=== PATIENT | female | born 1975 | race American Indian/Alaskan Native ===

== ENCOUNTER 2016-11-20 15:57 | Emergency (ER) | payer MEDICARE ==
[2016-11-20 16:10] VITALS: BP 148/100
[2016-11-20 16:41] LABS: Eosinophils % (Auto) 0.8 % (0.0-4.3); Hematocrit 45.4 % (30.3-42.9); Hemoglobin 15.2 gm/dl (10.1-14.3); Mean Corpuscular HGB Conc 34 % (30-34); Mean Corpuscular Hemoglobin 37 pg (28-32); Mean Corpuscular Volume 110 fl (79-97); Platelet Count 187 K/mm3 (140-440); Red Blood Count 4.13 M/mm3 (3.65-5.03); Red Cell Distribution Width 14.9 % (13.2-15.2); White Blood Count 9.2 K/mm3 (4.5-11.0)
[2016-11-20 16:51] LABS: Alanine Aminotransferase 14 units/L (7-56); Albumin 4.2 g/dL (3.9-5); Albumin/Globulin Ratio 1.2 %; Alkaline Phosphatase 76 units/L (35-129); Anion Gap 20 mmol/L; BUN/Creatinine Ratio 6.25; Bilirubin,Total 0.3 mg/dL (0.1-1.2); Blood Urea Nitrogen 5 mg/dL (7-17); Calcium 8.3 mg/dL (8.4-10.2); Carbon Dioxide 20 mmol/L (22-30); Chloride 103.2 mmol/L (98-107); Glucose 111 mg/dL (65-100); Lipase 21 units/L (13-60); Potassium 3.5 mmol/L (3.6-5.0); Sodium 140 mmol/L (137-145); Total Protein 7.7 g/dL (6.3-8.2)
[2016-11-20 18:17] LABS: Bacteria,Urine 2+ /HPF (Negative); Bilirubin,Urine NEG (Negative); Blood,Urine NEG (Negative); Ketones,Urine NEG (Negative); Leukocyte Esterase,Urine NEG (Negative); Mucus,Urine FEW /HPF; Nitrite,Urine NEG (Negative); Protein,Urine <15 mg/dL mg/dL (Negative); Urobilinogen,Urine < 2.0 mg/dL (<2.0)
== END 2016-11-20 21:45 | disposition left against medical advice (07) ==
LOC: ED 15:57
DX: R10.9 Unspecified abdominal pain (principal); Z53.21 Procedure and treatment not carried out due to patient leaving prior to being seen by health care provider
CPT/HCPCS: 36415; 80053; 81001; 83690; 85025

== ENCOUNTER 2016-11-26 19:17 | Emergency (ER) | payer MEDICARE ==
[2016-11-26 20:53] LABS: Basophils % (Auto) 0.9 % (0.0-1.8); Hematocrit 45.2 % (30.3-42.9); Hemoglobin 15.2 gm/dl (10.1-14.3); Mean Corpuscular HGB Conc 34 % (30-34); Mean Corpuscular Hemoglobin 37 pg (28-32); Mean Corpuscular Volume 111 fl (79-97); Platelet Count 161 K/mm3 (140-440); Red Blood Count 4.08 M/mm3 (3.65-5.03); Red Cell Distribution Width 15.3 % (13.2-15.2); White Blood Count 8.9 K/mm3 (4.5-11.0)
[2016-11-26 21:16] LABS: Alanine Aminotransferase 16 units/L (7-56); Albumin 4.1 g/dL (3.9-5); Albumin/Globulin Ratio 1.1 %; Alkaline Phosphatase 72 units/L (35-129); Anion Gap 22 mmol/L; BUN/Creatinine Ratio 8.75; Bilirubin,Total 0.3 mg/dL (0.1-1.2); Blood Urea Nitrogen 7 mg/dL (7-17); Calcium 8.9 mg/dL (8.4-10.2); Carbon Dioxide 18 mmol/L (22-30); Glucose 96 mg/dL (65-100); Lipase 17 units/L (13-60); Potassium 3.7 mmol/L (3.6-5.0); Sodium 141 mmol/L (137-145); Total Protein 7.9 g/dL (6.3-8.2)
[2016-11-27 00:24] LABS: Bilirubin,Urine Negative (Negative); Ketones,Urine Negative (Negative)
[2016-11-27 00:25] LABS: Blood,Urine Negative (Negative); Leukocyte Esterase,Urine Small (Negative); Nitrite,Urine Negative (Negative); PH,Urine 6.5 (5.0-7.0); Urobilinogen,Urine < 0.2 mg/dL (<2.0)
[2016-11-27 00:26] LABS: Bacteria,Urine 2+ /HPF (Negative); Mucus,Urine 1+ /HPF; RBC,Urine < 1.0 /HPF (0.0-6.0)
[2016-11-27 01:08] VITALS: BP 130/78
--- NOTE | 2016-11-27 01:52 | Emergency Department Report ---
ED Abdominal Pain HPI - General Chief Complaint: Abdominal Pain Stated Complaint: CONSTIPATION/EAR PAIN Time Seen by Provider: 11/27/16 01:08 Source: patient Mode of arrival: Ambulatory Limitations: No Limitations - History of Present Illness Initial Comments: 41-year-old female with a past medical history of bipolar, seizures, Down syndrome, and previous abdominal hernia repair presents to the hospital with complaints of abdominal pain and left ear pain. Patient has had left ear pain greater than one month. Patient also complains of constipation for the last 3 days but complaining of intermittent abdominal pain with eating for greater than 1 month. Patient has not tried taking a laxative. No reports of vomiting or fever. Patient is eating a bag of chips during my evaluation Severity scale (0 -10): 4 - Related Data Home Medications Medication Instructions Recorded Confirmed Last Taken Divalproex Sodium [Depakote] 500 mg PO BID 03/08/14 03/29/15 03/28/15 08:00 Lurasidone HCl [Latuda] 40 mg PO QDAY 03/29/15 03/29/15 03/29/15 200mg Previous Rx's Medication Instructions Recorded Last Taken Type Famotidine [Pepcid] 20 mg PO BID #60 tablet 11/27/16 Unknown Rx Polyethylene Glycol 3350 [Miralax 17 gm PO QDAY PRN #20 packet 11/27/16 Unknown Rx 3350] Allergies Allergy/AdvReac Type Severity Reaction Status Date / Time acetaminophen [From Vicodin] Allergy Anaphylaxis Verified 01/09/15 14:52 codeine Allergy Anaphylaxis Verified 01/09/15 14:52 hydrocodone bitartrate Allergy Anaphylaxis Verified 01/09/15 14:52 [From Vicodin] ED Review of Systems ROS: Stated complaint: CONSTIPATION/EAR PAIN Other details as noted in HPI Comment: All other systems reviewed and negative Other: Constitutional: No fevers chills Eyes: No eye pain visual changes ENT: As per HPI Neck: Denies pain Respiratory: Denies cough wheezing shortness of breath Cardiovascular: Denies chest pain, palpitations, syncope GI: As per HPI : Denies dysuria Musculoskeletal: Denies back pain, joint swelling Skin: Denies rash, lesions, erythema Neurologic: Denies headache, numbness, weakness Psychiatric: Denies suicidal ideation, hallucinations ED Past Medical Hx - Past Medical History Previous Medical History?: Yes Hx Hypertension: Yes (with ) Hx Congestive Heart Failure: No Hx Diabetes: No Hx Deep Vein Thrombosis: No Hx Renal Disease: No Hx Sickle Cell Disease: No Hx Seizures: Yes (last seizure 2011) Hx Psychiatric Treatment: Yes (BIPOLAR / DEPRESSION) Hx Asthma: No Hx COPD: No Hx HIV: No Additional medical history: Congenital heart murmur, Downs Syndrome - Surgical History Past Surgical History?: Yes Additional Surgical History: Hernia repair - Social History Smoking Status: Current Every Day Smoker Substance Use Type: Alcohol - Medications Home Medications: Home Medications Medication Instructions Recorded Confirmed Last Taken Type Divalproex Sodium [Depakote] 500 mg PO BID 03/08/14 03/29/15 03/28/15 08:00 History Lurasidone HCl [Latuda] 40 mg PO QDAY 03/29/15 03/29/15 03/29/15 History 200mg Famotidine [Pepcid] 20 mg PO BID #60 tablet 11/27/16 Unknown Rx Polyethylene Glycol 3350 [Miralax 17 gm PO QDAY PRN #20 packet 11/27/16 Unknown Rx 3350] ED Physical Exam - General Limitations: No Limitations - Other Other exam information: General: No limitations, patient is alert in no acute distress Head exam: Atraumatic, normocephalic Eyes exam: Normal appearance ENT: Left ear foreign body versus eustachian tube blue in color Neck exam: Normal inspection, full range of motion Respiratory exam: Clear to auscultation bilateral, no wheezes, rales, crackles Cardiovascular: Normal rate and rhythm, normal heart sounds Abdomen: Soft, nondistended, epigastric vertical scar with small area of firmness noted at the lower edge alone in the subcutaneous tissue. May represent focal soft tissue hernia. Nontender. Patient does have epigastric tenderness on palpation without rebound or guarding Extremity: Full range of motion normal inspection no deformity Back: Normal Inspection, full range of motion, no tenderness Neurologic: Alert, oriented x3, cranial nerves intact, no motor or sensory deficit Psychiatric: normal affect, normal mood Skin: Warm, dry, intact ED Course Vital Signs 11/26/16 11/26/16 11/27/16 20:27 23:29 01:06 Temperature 98.0 F 98.4 F Pulse Rate 113 H 97 H 75 Respiratory 18 18 16 Rate Blood Pressure 141/74 115/75 Blood Pressure 130/78 [Left] O2 Sat by Pulse 100 100 99 Oximetry ED Medical Decision Making - Lab Data Result diagrams: 11/26/16 20:44 11/26/16 20:44 Lab Results 11/26/16 11/26/16 11/26/16 Range/Units 20:44 20:44 23:30 WBC 8.9 (4.5-11.0) K/mm3 RBC 4.08 (3.65-5.03) M/mm3 Hgb 15.2 H (10.1-14.3) gm/dl Hct 45.2 H (30.3-42.9) % MCV 111 H (79-97) fl MCH 37 H (28-32) pg MCHC 34 (30-34) % RDW 15.3 H (13.2-15.2) % Plt Count 161 (140-440) K/mm3 Lymph % (Auto) 19.0 (13.4-35.0) % [place] % (Auto) 8.2 H (0.0-7.3) % Eos % (Auto) 2.0 (0.0-4.3) % Baso % (Auto) 0.9 (0.0-1.8) % Lymph # 1.7 (1.2-5.4) K/mm3 [place] # 0.7 (0.0-0.8) K/mm3 Eos # 0.2 (0.0-0.4) K/mm3 Baso # 0.1 (0.0-0.1) K/mm3 Seg Neutrophils % 69.9 (40.0-70.0) % Seg Neutrophils # 6.2 (1.8-7.7) K/mm3 Sodium 141 (137-145) mmol/L Potassium 3.7 (3.6-5.0) mmol/L Chloride 105.0 (98-107) mmol/L Carbon Dioxide 18 L (22-30) mmol/L Anion Gap 22 mmol/L BUN 7 (7-17) mg/dL Creatinine 0.8 (0.7-1.2) mg/dL Estimated GFR > 60 ml/min BUN/Creatinine Ratio 8.75 % Glucose 96 (65-100) mg/dL Calcium 8.9 (8.4-10.2) mg/dL Total Bilirubin 0.3 (0.1-1.2) mg/dL AST 17 (5-40) units/L ALT 16 (7-56) units/L Alkaline Phosphatase 72 (35-129) units/L Total Protein 7.9 (6.3-8.2) g/dL Albumin 4.1 (3.9-5) g/dL Albumin/Globulin Ratio 1.1 % Lipase 17 (13-60) units/L Urine Color Yellow (Yellow) Urine Turbidity Hazy (Clear) Urine pH 6.5 (5.0-7.0) Ur Specific [place] 1.025 (1.003-1.030) Urine Protein 30 mg/dl (Negative) mg/dL Urine Glucose (UA) Negative (Negative) mg/dL Urine Ketones Negative (Negative) mg/dL Urine Blood Negative (Negative) Urine Nitrite Negative (Negative) Urine Bilirubin Negative (Negative) Urine Urobilinogen < 0.2 (<2.0) mg/dL Ur Leukocyte Esterase Small (Negative) Urine WBC (Auto) 2.0 (0.0-6.0) /HPF Urine RBC (Auto) < 1.0 (0.0-6.0) /HPF U Epithel Cells (Auto) 3.0 (0-13.0) /HPF Urine Bacteria (Auto) 2+ (Negative) /HPF Urine Mucus 1+ /HPF - Radiology Data Radiology results: image reviewed (abd xray 2 view: naf) - Medical Decision Making Since family reports constipation will treat patient empirically for constipation. Also patient be placed on the PPI for epigastric pain related to eating. GI follow-up will be encouraged as well as ENT follow-up for evaluation of left ear foreign body. LActulose given prior to d/c - Differential Diagnosis obstipation, obstruction, gastritis, PUD Critical Care Time: No Critical care attestation.: If time is entered above; I have spent that time in minutes in the direct care of this critically ill patient, excluding procedure time. ED Disposition Clinical Impression: Epigastric pain, Constipation, Foreign body in left ear Disposition: DISCHARGED TO HOME OR SELFCARE Is pt being admited?: No Does the pt Need Aspirin: No Condition: Stable Instructions: Constipation (ED), Ear Foreign Body (ED), Abdominal Pain (ED) Additional Instructions: Follow up with the doctors provided. Take the medication as prescribed. Return if symptoms worsen. Prescriptions: Famotidine [Pepcid] 20 mg PO BID #60 tablet Polyethylene Glycol 3350 [Miralax 3350] 17 gm PO QDAY PRN #20 packet PRN Reason: Constipation Referrals: MAURIZIO CASILLAS MD [Staff Physician] - 3-5 Days (GI specialist) FAVIAN BERMUDEZ MD [Staff Physician] - 3-5 Days (Ear Nose Throat specialist ) Time of Disposition: 02:10
[2016-11-27] MEDS ORDERED: CEPHULAC PO ONE (01:53)
--- NOTE | 2016-11-27 10:14 | XRay Report ---
ABDOMINAL SERIES THREE VIEWS: 11/26/16 19:17:00 CLINICAL: Constipation. FINDINGS: Supine and upright views demonstrate a normal bowel gas pattern with a large volume of stool in the colon. No distended small bowel and no air-fluid levels. Gas and stool in the rectum. No pneumoperitoneum. No mass or suspicious calcifications. Surgical sutures in a circular shape and system with a mesh graft. Scoliosis and degenerative changes in the spine. IMPRESSION: Negative abdomen with abundant stool.
== END 2016-11-27 02:25 | disposition home or self-care (01) ==
LOC: ED 19:17
DX: K59.00 Constipation, unspecified (principal); T16.2XXA Foreign body in left ear, initial encounter; R10.13 Epigastric pain; R56.9 Unspecified convulsions; F32.9 Major depressive disorder, single episode, unspecified; F17.200 Nicotine dependence, unspecified, uncomplicated; X58.XXXA Exposure to other specified factors, initial encounter; Y93.89 Activity, other specified; Y92.89 Other specified places as the place of occurrence of the external cause; Y99.8 Other external cause status; Z88.6 Allergy status to analgesic agent; Z88.8 Allergy status to other drugs, medicaments and biological substances
CPT/HCPCS: 36415; 74020; 80053; 81001; 83690; 85025

== ENCOUNTER 2017-02-16 08:46 | Outpatient (CLI) | payer MEDICARE ==
[2017-02-16 09:30] LABS: Anion Gap 21 mmol/L; BUN/Creatinine Ratio 8.75; Blood Urea Nitrogen 7 mg/dL (7-17); Calcium 8.6 mg/dL (8.4-10.2); Carbon Dioxide 23 mmol/L (22-30); Chloride 104.5 mmol/L (98-107); Glucose 87 mg/dL (65-100); Potassium 4.5 mmol/L (3.6-5.0); Sodium 144 mmol/L (137-145)
[2017-02-16] MEDS ORDERED: NACL ONE (11:56)
--- NOTE | 2017-02-16 13:47 | Cat Scan Report ---
CT abdomen and pelvis with contrast: Recurrent abdominal hernia. Transverse images are obtained following injection of IV contrast from the lower chest to the ischium with coronal and sagittal 2-D reformatted images. The visualized lungs are clear. The abdominal and retroperitoneal organs are unremarkable. The partially opacified bowel and mesentery show no evidence of obstruction, mass, or inflammatory change. No adenopathy. Normal abdominal aortic contour and diameter. No fluid collections noted. There is a midline anterior abdominal wall mesh beginning at the lower margin of the left lobe of the liver. At the lower margin of the mesh the recurrent hernia begins on the left extending to a larger component below the level of the mesh. There is a maximum of 4.8 cm of midline rectus separation. The length of the total hernia is approximately 5.9 cm. extending 4.8 cm below the mesh. The hernia contains mesentery but no bowel. There is diffuse lumbar spondylosis and a levoscoliosis of the thoracolumbar spine. Bilateral degenerative acetabular spurs are noted with subchondral cystic changes. Impressions: 1. Midline hernia repair with recurrent hernia. 2. Scoliosis/spondylosis.
== END 2017-02-16 08:47 | disposition home or self-care (01) ==
LOC: CT 08:46
PROVIDERS: ATTEND Surgery
DX: K46.9 Unspecified abdominal hernia without obstruction or gangrene (principal); K59.00 Constipation, unspecified; M47.896 Other spondylosis, lumbar region; M41.85 Other forms of scoliosis, thoracolumbar region; F17.200 Nicotine dependence, unspecified, uncomplicated; Z98.890 Other specified postprocedural states
CPT/HCPCS: 36415; 74177; 80048; Q9967

== ENCOUNTER 2019-02-08 11:17 | Inpatient (IN) | payer MEDICARE ==
[2019-02-08] MEDS ORDERED: KEPPRA 1,000 MG/NS 0.75% 100ML 1,000 MG/100 ML BAG IV ONE (11:33)
[2019-02-08] MEDS ORDERED: ATIVAN IV ONE (11:35)
--- NOTE | 2019-02-08 11:37 | Emergency Department Report ---
ED Seizure HPI - General Chief Complaint: Seizure Stated Complaint: SEIZURE Time Seen by Provider: 02/08/19 11:28 Source: EMS Mode of arrival: Stretcher Limitations: Altered Mental Status - History of Present Illness Initial Comments: Ms. Lott is a 43 yo female with hx of schizophrenia, seizure disorder, who presents with seizure activity. Family members until EMS that she had a seizure which lasted one hour. She has been out of her Keppra medication for quite some time. Patient is currently nonverbal. Upon's fiance's arrival, he was able to provide additional information. Ms. Lott stood still, perfectly straight. Shouted out "the police are coming". She then fell to the ground, began trembling. Her movements were not her typical seizures. MD Complaint: seizure -: This morning Description of Episode: loss of consciousness, tonic-clonic movement Witnessed:: Yes Trauma: No Seizure History: known seizure disorder Place: home Possible Precipitating Event: medication (medication noncompliance) - Related Data Home Medications Medication Instructions Recorded Confirmed Last Taken Benztropine [Cogentin] 1 mg PO BID 03/07/17 06/17/18 06/17/18 Paliperidone [Invega] 3 mg PO DAILY 03/08/17 06/17/18 06/17/18 Previous Rx's Medication Instructions Recorded Last Taken Type levETIRAcetam [Keppra] 500 mg PO BID #90 tablet 06/17/18 Unknown Rx Ibuprofen [Motrin 800 MG tab] 800 mg PO Q8HR PRN #20 tablet 08/03/18 Unknown Rx Allergies Allergy/AdvReac Type Severity Reaction Status Date / Time acetaminophen [From Vicodin] Allergy Anaphylaxis Verified 03/03/17 16:45 codeine Allergy Anaphylaxis Verified 03/03/17 16:45 hydrocodone bitartrate Allergy Anaphylaxis Verified 03/03/17 16:45 [From Vicodin] ED Review of Systems ROS: Stated complaint: SEIZURE Other details as noted in HPI Comment: Unobtainable due to pts medical conditions (altered mental status, nonverbal) ED Past Medical Hx - Past Medical History Previous Medical History?: Yes Hx Hypertension: Yes (with ) Hx Congestive Heart Failure: No Hx Diabetes: No Hx Deep Vein Thrombosis: No Hx GERD: Yes Hx Renal Disease: No Hx Sickle Cell Disease: No Hx Seizures: Yes (last over 1 year ago) Hx Psychiatric Treatment: Yes (BIPOLAR / DEPRESSION) Hx Asthma: No Hx COPD: No Hx HIV: No Additional medical history: Congenital heart murmur, Downs Syndrome - Surgical History Additional Surgical History: Hernia repair x 2 - Social History Smoking Status: Unknown if ever smoked - Medications Home Medications: Home Medications Medication Instructions Recorded Confirmed Last Taken Type Benztropine [Cogentin] 1 mg PO BID 03/07/17 06/17/18 06/17/18 History Paliperidone [Invega] 3 mg PO DAILY 03/08/17 06/17/18 06/17/18 History levETIRAcetam [Keppra] 500 mg PO BID #90 tablet 06/17/18 Unknown Rx Ibuprofen [Motrin 800 MG tab] 800 mg PO Q8HR PRN #20 tablet 08/03/18 Unknown Rx ED Physical Exam - General Limitations: Altered Mental Status General appearance: other (keeps eyes closed, maintaining airway, no seizure activity,) - Head Head exam: Present: atraumatic, normocephalic - Eye Eye exam: Present: other (clenches eyes closed, will not allow eyelids to be pried open) - ENT ENT exam: Present: mucous membranes moist - Neck Neck exam: Present: normal inspection, full ROM. Absent: tenderness, meningismus - Respiratory Respiratory exam: Present: normal lung sounds bilaterally, chest wall tenderness. Absent: respiratory distress, wheezes, rales, rhonchi - Cardiovascular Cardiovascular Exam: Present: regular rate, normal rhythm, normal heart sounds. Absent: systolic murmur, diastolic murmur, rubs, gallop - GI/Abdominal GI/Abdominal exam: Present: soft, normal bowel sounds. Absent: distended, tenderness, guarding, rebound - Extremities Exam Extremities exam: Present: normal inspection - Back Exam Back exam: Present: normal inspection - Neurological Exam Neurological exam: Present: altered - Psychiatric Psychiatric exam: Present: flat affect - Skin Skin exam: Present: warm, dry, intact, normal color. Absent: rash ED Course Vital Signs 02/08/19 02/08/19 02/08/19 11:50 11:51 15:24 Temperature 98.5 F Pulse Rate 83 78 Respiratory 18 18 14 Rate Blood Pressure 131/81 116/66 [Right] O2 Sat by Pulse 97 97 98 Oximetry ED Medical Decision Making - Lab Data Result diagrams: 02/08/19 11:37 02/08/19 11:37 - Radiology Data Radiology results: report reviewed CT head, CT C-spine: No acute process no fracture and subluxation no evidence of acute findings according to radiology report - Medical Decision Making Ms. Lott has hx of seizure disorder. I obtained hx from paramedics at the bedside. I reviewed electronic medical record. I immediately ordered IV lorazepam and IV Keppra load. I spoke with nurse to coordinate care here in the emergency department. Ms. Lott presents with altered mental status and possible seizure activity. After 6 hours of observation continues to be nonverbal yet with purposeful movement. Differential diagnosis includes acute psychosis, status epilepticus, TIA. She will make eye contact. She exhibits purposeful movement. She appears to speak intermittently to her fianc. However fianc states that she has not had this type of presentation previously. Admitted to the hospitalist service in fair condition. TPA is not indicated considering multiple possible diagnoses. Critical care attestation.: If time is entered above; I have spent that time in minutes in the direct care of this critically ill patient, excluding procedure time. ED Disposition Clinical Impression: Acute encephalopathy, Seizure disorder, Psychosis Disposition: DC-09 OP ADMIT IP TO THIS HOSP Is pt being admited?: Yes Does the pt Need Aspirin: No Condition: Stable
[2019-02-08 11:49] LABS: Basophils # (Auto) 0.1 K/mm3 (0.0-0.1); Basophils % (Auto) 0.8 % (0.0-1.8); Eosinophils % (Auto) 0.2 % (0.0-4.3); Hematocrit 39.4 % (30.3-42.9); Hemoglobin 13.4 gm/dl (10.1-14.3); Lymphocytes # (Auto) 0.8 K/mm3 (1.2-5.4); Lymphocytes % (Auto) 9.8 % (13.4-35.0); Mean Corpuscular HGB Conc 34 % (30-34); Mean Corpuscular Volume 101 fl (79-97); Monocytes # (Auto) 0.6 K/mm3 (0.0-0.8); Monocytes % (Auto) 7.4 % (0.0-7.3); Platelet Count 157 K/mm3 (140-440); Red Blood Count 3.89 M/mm3 (3.65-5.03); Red Cell Distribution Width 14.6 % (13.2-15.2)
[2019-02-08 12:04] LABS: BUN/Creatinine Ratio 13; Blood Urea Nitrogen 10 mg/dL (7-17); Calcium 8.4 mg/dL (8.4-10.2); Hemolysis Index 8
[2019-02-08 14:00] LABS: Bacteria,Urine 1+ /HPF (Negative); Bilirubin,Urine NEG (Negative); Blood,Urine NEG (Negative); Color,Urine Yellow (Yellow); Mucus,Urine 3+ /HPF; Protein,Urine <15 mg/dL mg/dL (Negative); Urobilinogen,Urine < 2.0 mg/dL (<2.0)
[2019-02-08 14:30] LABS: Amphetamine Screen,Urine PRESUMPTIVE NEGATIVE; Benzodiazepines Screen,Urine PRESUMPTIVE NEGATIVE; Cocaine Screen,Urine PRESUMPTIVE NEGATIVE; Methadone Screen,Urine PRESUMPTIVE NEGATIVE; Opiate Screen,Urine PRESUMPTIVE NEGATIVE
[2019-02-08 14:43] LABS: Cannabinoid Screen,Urine PRESUMPTIVE POSITIVE
--- NOTE | 2019-02-08 18:00 | Cat Scan Report ---
PROCEDURE: CT HEAD/BRAIN WO CON TECHNIQUE: Computerized tomography of the head was performed without contrast material. CT DOSE LENGTH PRODUCT: 927.3 mGycm HISTORY: seizure AMS COMPARISONS: 08/03/2018 . FINDINGS: No CT evidence of intracranial mass, hemorrhage, acute territorial infarction, or hydrocephalus. Intr acranial arteries are symmetric in density. Bilaterally the globes appear ovoid in shape, similar to that seen previously. Calvarium is intact. Paranasal sinuses and mastoids are aerated. IMPRESSION: No CT evidence of acute intracranial abnormality . The globes are bilaterally ovoid in shape, but similar in appearance to the prior study This document is electronically signed by Oksana Hsu MD., February 08 2019 05:58:03 PM ET
--- NOTE | 2019-02-08 18:03 | Cat Scan Report ---
PROCEDURE: CT CERVICAL SPINE WO CON TECHNIQUE: Computerized tomography of the cervical spine was performed from the skull base to T1 wit hout contrast material. CT DOSE LENGTH PRODUCT: 506.1 mGycm HISTORY: seizure AMS COMPARISONS: None . FINDINGS: There are multilevel degenerative disc changes, particularly from C4-5 through C6-7. The vertebral kym dy heights and alignment are maintained. No acute fracture or subluxation is seen. IMPRESSION: No acute fracture or subluxation. This document is electronically signed by Oksana Hsu MD., February 08 2019 06:01:36 PM ET
--- NOTE | 2019-02-08 18:28 | History and Physical Report ---
History of Present Illness Chief complaint: She had a seizure History of present illness: 43 YO Female with Seizure Disorder, HTN, GERD, Bipolar, Depression, Schizophrenia, Downs Syndrome presents to ED for evaluation. Pt is lethargic and also nonverbal and unable to provide detailed history. Pt history provided by ursula biswas who is at bedside during exam and interview. As per family, the patient was found to have a generalized seizure today which lasted for approximately an hour. EMS notified, and upon arrival the patient was found to be in distress and was then transported to [facility]. Pt seen and evaluated in ED and found to have Encephalopathy. Pt admitted to medical floor and placed on remote telemetry. No reports of fever, chills, CP, Palpitations, Trauma, Falls, Skin Rash, productive cough, or recent ill contacts. No prior admission for review. All listed medication reconciled at time of admission. Past History Past Medical History: GERD, hypertension, seizures, other (Depression, Bipolar, Schizophrenia, ) Past Surgical History: hernia repair Social history: single Family history: hypertension Medications and Allergies Allergies Allergy/AdvReac Type Severity Reaction Status Date / Time acetaminophen [From Vicodin] Allergy Anaphylaxis Verified 03/03/17 16:45 codeine Allergy Anaphylaxis Verified 03/03/17 16:45 hydrocodone bitartrate Allergy Anaphylaxis Verified 03/03/17 16:45 [From Vicodin] Home Medications Medication Instructions Recorded Confirmed Last Taken Type Benztropine [Cogentin] 1 mg PO BID 03/07/17 06/17/18 06/17/18 History Paliperidone [Invega] 3 mg PO DAILY 03/08/17 06/17/18 06/17/18 History levETIRAcetam [Keppra] 500 mg PO BID #90 tablet 06/17/18 Unknown Rx Ibuprofen [Motrin 800 MG tab] 800 mg PO Q8HR PRN #20 tablet 08/03/18 Unknown Rx Review of Systems ROS unobtainable: due to mental status Exam - Constitutional Vitals: Temp Pulse Resp BP Pulse Ox 98.5 F 78 14 116/66 98 02/08/19 11:50 02/08/19 15:24 02/08/19 15:24 02/08/19 15:24 02/08/19 15:24 General appearance: Present: mild distress - EENT Eyes: Present: PERRL, miosis ENT: hearing intact, clear oral mucosa - Neck Neck: Present: supple, normal ROM - Respiratory Respiratory effort: normal Respiratory: bilateral: CTA - Cardiovascular Heart Sounds: Present: S1 & S2. Absent: rub, click - Extremities Extremities: pulses symmetrical, No edema Peripheral Pulses: within normal limits - Abdominal General gastrointestinal: Present: soft, non-tender, non-distended, normal bowel sounds Female genitourinary: Present: normal - Integumentary Integumentary: Present: clear, warm, dry - Musculoskeletal Musculoskeletal: generalized weakness - Psychiatric Psychiatric: no appropriate mood/affect, no intact judgment & insight, no memory intact - Neurologic Neurologic: CNII-XII intact, moves all extremities, no gait normal Results - Labs CBC & Chem 7: 02/08/19 11:37 02/08/19 11:37 Labs: Abnormal lab results 02/08/19 02/08/19 02/08/19 Range/Units 11:37 11:37 12:49 MCV 101 H (79-97) fl MCH 34 H (28-32) pg Lymph % (Auto) 9.8 L (13.4-35.0) % [facility] % (Auto) 7.4 H (0.0-7.3) % Lymph # 0.8 L (1.2-5.4) K/mm3 Seg Neutrophils % 81.8 H (40.0-70.0) % Glucose 109 H (65-100) mg/dL Salicylates < 0.3 L (2.8-20.0) mg/dL Acetaminophen (10.0-30.0) ug/mL 02/08/19 Range/Units 12:49 MCV (79-97) fl MCH (28-32) pg Lymph % (Auto) (13.4-35.0) % [facility] % (Auto) (0.0-7.3) % Lymph # (1.2-5.4) K/mm3 Seg Neutrophils % (40.0-70.0) % Glucose (65-100) mg/dL Salicylates (2.8-20.0) mg/dL Acetaminophen < 5.0 L (10.0-30.0) ug/mL Assessment and Plan - Patient Problems (1) Encephalopathy Current Visit: Yes Status: Acute Plan to address problem: CT head, neuro check, seizure precautions, fall precautions, aspiration pr ecautions, supportive care. (2) HTN (hypertension) Current Visit: Yes Status: Acute Qualifiers: Hypertension type: essential hypertension Qualified Code(s): I10 - Essential (primary) hypertension Plan to address problem: Monitor BP q shift, supportive care, IV hydralazine prn for SBP >155 (3) Seizure disorder Current Visit: Yes Status: Acute Plan to address problem: Status Epilepticus: Keppra level, 1 gram Keppra IV loading in ED, Neuro checks, seizure precautions, supportive care. (4) GERD (gastroesophageal reflux disease) Current Visit: Yes Status: Acute Qualifiers: Esophagitis presence: without esophagitis Qualified Code(s): K21.9 - Gastro-esophageal reflux disease without esophagitis Plan to address problem: PPI therapy, supportive care. (5) Down's syndrome Current Visit: Yes Status: Acute Plan to address problem: Supportive care, POA. (6) DVT prophylaxis Current Visit: Yes Status: Acute Plan to address problem: SCD to BLE while in bed,
[2019-02-08] MEDS ORDERED: PROVENTIL IH PRN (18:31)
[2019-02-08] MEDS ORDERED: TYLENOL PO PRN (18:31)
[2019-02-08] MEDS ORDERED: ZOFRAN IV PRN (18:31)
[2019-02-08] MEDS ORDERED: SODIUM CHLORIDE FLUSH SYRINGE 10 ML IV PRN (18:31)
[2019-02-08] MEDS ORDERED: IBUPROFEN PO PRN (18:34)
[2019-02-08] MEDS ORDERED: ATIVAN IV NR (18:45)
[2019-02-08] MEDS ORDERED: NACL 0.45% 1000 ML 1,000 ML IV SCH (19:00)
--- NOTE | 2019-02-08 20:32 | Cat Scan Report ---
PROCEDURE: CT ANGIO CHEST TECHNIQUE: Computerized tomographic angiography of the chest was performed after the IV injection of iodinated nonionic contrast including image processing. The image data was postprocessed using 2-di mensional multiplanar reformatted (MPR) and 3-dimensional (MIP and/or volume rendered) techniques. Au tomated exposure control, adjustment of mA and/or kV according to patient size, or iterative reconstr uction dose optimization techniques were utilized. CT DOSE LENGTH PRODUCT: 281.8 mGycm HISTORY: pain COMPARISONS: None . FINDINGS: Heart and pericardium: Normal. Thoracic aorta: Normal. Pulmonary vasculature: Normal. Lymph nodes: No enlarged thoracic lymph nodes. Lungs: Normal. Pleural space: No effusion, thickening, or pneumothorax. Musculoskeletal structures: There is scoliosis of the thoracic spine convex right. Upper abdominal structures: No significant abnormality. IMPRESSION: Negative no CT evidence for acute pulmonary embolus. Thoracic scoliosis noted. This document is electronically signed by Niall Ovalle MD., February 08 2019 08:30:41 PM ET
[2019-02-08] MEDS ORDERED: KEPPRA PO SCH (22:00)
[2019-02-08] MEDS: SODIUM CHLORIDE FLUSH SYRINGE 10 ML IV SCH (22:04)
[2019-02-08] MEDS: COGENTIN PO SCH (22:10)
[2019-02-08] MEDS: KEPPRA 500 MG in D5W 100 ML IV SCH (23:44)
[2019-02-09 07:58] LABS: Basophils % (Auto) 0.6 % (0.0-1.8); Eosinophils # (Auto) 0.1 K/mm3 (0.0-0.4); Eosinophils % (Auto) 1.5 % (0.0-4.3); Hematocrit 37.8 % (30.3-42.9); Hemoglobin 12.9 gm/dl (10.1-14.3); Lymphocytes # (Auto) 0.7 K/mm3 (1.2-5.4); Mean Corpuscular HGB Conc 34 % (30-34); Mean Corpuscular Volume 102 fl (79-97); Monocytes # (Auto) 0.4 K/mm3 (0.0-0.8); Monocytes % (Auto) 7.8 % (0.0-7.3); Platelet Count 147 K/mm3 (140-440); Red Blood Count 3.72 M/mm3 (3.65-5.03); Red Cell Distribution Width 14.5 % (13.2-15.2)
[2019-02-09 08:22] LABS: Alanine Aminotransferase 7 units/L (7-56); Albumin 3.7 g/dL (3.9-5); BUN/Creatinine Ratio 10; Blood Urea Nitrogen 8 mg/dL (7-17); Hemolysis Index 3
[2019-02-09] MEDS ORDERED: INVEGA PO SCH (10:00)
[2019-02-09] MEDS: KEPPRA 500 MG in D5W 100 ML IV SCH (10:51)
[2019-02-09] MEDS: COGENTIN PO SCH (10:52)
[2019-02-09] MEDS: SODIUM CHLORIDE FLUSH SYRINGE 10 ML IV SCH (10:54)
--- NOTE | 2019-02-09 16:38 | Discharge Summary ---
Providers - Providers Date of Admission: 02/08/19 18:31 Date of discharge: 02/09/19 Attending physician: LUCRECIA KIM [facility] Condition: Stable Hospital course: (1) Encephalopathy Current Visit: Yes Status: Acute Plan to address problem: Improved (2) HTN (hypertension) Current Visit: Yes Status: Acute Qualifiers: Hypertension type: essential hypertension Qualified Code(s): I10 - Essential (primary) hypertension Plan to address problem: Well controlled (3) Seizure disorder Current Visit: Yes Status: Acute Plan to address problem: Doing well on Keppra Increase Keppra to 750 mg po bid (4) GERD (gastroesophageal reflux disease) Current Visit: Yes Status: Acute Qualifiers: Esophagitis presence: without esophagitis Qualified Code(s): K21.9 - Gastro-esophageal reflux disease without esophagitis Plan to address problem: PPI therapy, supportive care. (5) Down's syndrome Current Visit: Yes Status: Acute Plan to address problem: Supportive care, POA. Disposition: TO HOME OR SELFCARE Core Measure Documentation - Palliative Care Palliative Care/ Comfort Measures: Not Applicable - Core Measures Any of the following diagnoses?: none Exam - Constitutional Vitals: Temp Pulse Resp BP Pulse Ox 99.3 F 75 18 134/77 99 02/09/19 12:17 02/09/19 12:17 02/09/19 12:17 02/09/19 12:17 02/09/19 12:17 General appearance: Present: no acute distress, well-nourished - EENT Eyes: Present: PERRL ENT: hearing intact, clear oral mucosa - Neck Neck: Present: supple, normal ROM - Respiratory Respiratory effort: normal Respiratory: bilateral: CTA - Cardiovascular Heart rate: 78 Rhythm: regular Heart Sounds: Present: S1 & S2. Absent: rub, click - Extremities Extremities: no ischemia, pulses intact, pulses symmetrical, No edema Peripheral Pulses: within normal limits - Abdominal General gastrointestinal: Present: soft, non-tender, non-distended, normal bowel sounds Female genitourinary: Present: normal - Integumentary Integumentary: Present: clear, warm, dry - Musculoskeletal Musculoskeletal: gait normal, strength equal bilaterally - Psychiatric Psychiatric: appropriate mood/affect, intact judgment & insight - Neurologic Neurologic: CNII-XII intact, moves all extremities - Allied Health Allied health notes reviewed: nursing, case management Plan Activity: no restrictions Diet: regular Follow up with: SHRADDHA FELICIANO MD [Primary Care Provider] - 7 Days
[2019-02-09 17:48] VITALS: BP 130/80
== END 2019-02-09 18:03 | disposition home or self-care (01) | DRG 101 ==
LOC: ED 11:17 → 3A 18:31
PROVIDERS: ADMIT Internal Medicine; ATTEND Internal Medicine
DX: G40.901 Epilepsy, unspecified, not intractable, with status epilepticus (principal); G93.40 Encephalopathy, unspecified; I10 Essential (primary) hypertension; K21.9 Gastro-esophageal reflux disease without esophagitis; F31.9 Bipolar disorder, unspecified; F29 Unspecified psychosis not due to a substance or known physiological condition; F20.9 Schizophrenia, unspecified; Z82.49 Family history of ischemic heart disease and other diseases of the circulatory system; Z88.5 Allergy status to narcotic agent; Z79.899 Other long term (current) drug therapy; Q90.9 Down syndrome, unspecified
CPT/HCPCS: 36415; 70450; 71275; 72125; 80048; 80053; 80177; 80307; 80320; 81001; 85025; G0378; G0480; J1953; J2060; J7030; Q9967

== ENCOUNTER 2019-02-21 10:51 | Emergency (ER) | payer MEDICARE ==
[2019-02-21 11:49] LABS: Basophils # (Auto) 0.1 K/mm3 (0.0-0.1); Eosinophils % (Auto) 0.6 % (0.0-4.3); Hematocrit 38.1 % (30.3-42.9); Hemoglobin 13.1 gm/dl (10.1-14.3); Lymphocytes # (Auto) 0.8 K/mm3 (1.2-5.4); Lymphocytes % (Auto) 12.1 % (13.4-35.0); Mean Corpuscular HGB Conc 34 % (30-34); Mean Corpuscular Volume 101 fl (79-97); Monocytes # (Auto) 0.5 K/mm3 (0.0-0.8); Monocytes % (Auto) 7.2 % (0.0-7.3); Platelet Count 174 K/mm3 (140-440); Red Blood Count 3.77 M/mm3 (3.65-5.03); Red Cell Distribution Width 13.8 % (13.2-15.2)
[2019-02-21 12:15] LABS: Alanine Aminotransferase 8 units/L (7-56); Albumin 4.1 g/dL (3.9-5); BUN/Creatinine Ratio 10; Blood Urea Nitrogen 8 mg/dL (7-17); Calcium 8.7 mg/dL (8.4-10.2); Hemolysis Index 1
--- NOTE | 2019-02-21 13:36 | Emergency Department Report ---
ED General Adult HPI - General Chief complaint: Psych Stated complaint: MEDICATION REACTION Time Seen by Provider: 02/21/19 11:30 Source: family Mode of arrival: Ambulatory Limitations: Altered Mental Status - History of Present Illness Initial comments: Patient presents to the emergency department auditory hallucinations. The patient does not answer questions on exam but her significant other states that she is hearing voices telling her to harm himself and others blowing up the house. Patient is not able to add to history. Prior to me entering the room the patient was talking on the phone -: unknown Severity scale (0 -10): 0 Improves with: none Worsens with: none Associated Symptoms: denies other symptoms - Related Data Home Medications Medication Instructions Recorded Confirmed Last Taken Benztropine [Cogentin] 1 mg PO BID 03/07/17 02/08/19 06/17/18 Paliperidone [Invega] 3 mg PO DAILY 03/08/17 02/08/19 06/17/18 Ingrezza 80 mg PO DAILY 02/08/19 02/08/19 02/07/19 hydrOXYzine 1 caplet PO TID 02/08/19 02/08/19 02/07/19 Previous Rx's Medication Instructions Recorded Last Taken Type levETIRAcetam [Keppra] 500 mg PO BID #90 tablet 06/17/18 Unknown Rx Ibuprofen [Motrin 800 MG tab] 800 mg PO Q8HR PRN #20 tablet 08/03/18 Unknown Rx levETIRAcetam [Keppra TAB] 750 mg PO BID #60 tablet 02/09/19 Unknown Rx Allergies Allergy/AdvReac Type Severity Reaction Status Date / Time acetaminophen [From Vicodin] Allergy Anaphylaxis Verified 02/21/19 10:57 codeine Allergy Anaphylaxis Verified 02/21/19 10:57 hydrocodone bitartrate Allergy Anaphylaxis Verified 02/21/19 10:57 [From Vicodin] ED Review of Systems ROS: Stated complaint: MEDICATION REACTION Other details as noted in HPI Comment: Unobtainable due to pts medical conditions (patient not cooperative on exam) ED Past Medical Hx - Past Medical History Hx Hypertension: Yes (with ) Hx Congestive Heart Failure: No Hx Diabetes: No Hx Deep Vein Thrombosis: No Hx GERD: Yes Hx Renal Disease: No Hx Sickle Cell Disease: No Hx Seizures: Yes (last over 1 year ago) Hx Psychiatric Treatment: Yes (BIPOLAR / DEPRESSION) Hx Asthma: No Hx COPD: No Hx HIV: No Additional medical history: Congenital heart murmur, Downs Syndrome - Surgical History Past Surgical History?: Yes Additional Surgical History: Hernia repair x 2 - Social History Smoking Status: Never Smoker Substance Use Type: None - Medications Home Medications: Home Medications Medication Instructions Recorded Confirmed Last Taken Type Benztropine [Cogentin] 1 mg PO BID 03/07/17 02/08/19 06/17/18 History Paliperidone [Invega] 3 mg PO DAILY 03/08/17 02/08/19 06/17/18 History levETIRAcetam [Keppra] 500 mg PO BID #90 tablet 06/17/18 02/08/19 Unknown Rx Ibuprofen [Motrin 800 MG tab] 800 mg PO Q8HR PRN #20 tablet 08/03/18 02/08/19 Unknown Rx Ingrezza 80 mg PO DAILY 02/08/19 02/08/19 02/07/19 History hydrOXYzine 1 caplet PO TID 02/08/19 02/08/19 02/07/19 History levETIRAcetam [Keppra TAB] 750 mg PO BID #60 tablet 02/09/19 Unknown Rx ED Physical Exam - General Limitations: Altered Mental Status General appearance: alert, in no apparent distress - Head Head exam: Present: atraumatic, normocephalic - Eye Eye exam: Present: normal appearance, PERRL, EOMI - ENT ENT exam: Present: mucous membranes moist - Neck Neck exam: Present: normal inspection - Respiratory Respiratory exam: Present: normal lung sounds bilaterally. Absent: respiratory distress - Cardiovascular Cardiovascular Exam: Present: regular rate, normal rhythm. Absent: systolic murmur, diastolic murmur, rubs, gallop - GI/Abdominal GI/Abdominal exam: Present: soft, normal bowel sounds. Absent: distended, tenderness - Extremities Exam Extremities exam: Present: normal inspection - Back Exam Back exam: Present: normal inspection - Neurological Exam Neurological exam: Present: alert, oriented X3, CN II-XII intact. Absent: motor sensory deficit - Psychiatric Psychiatric exam: Present: normal affect, normal mood - Skin Skin exam: Present: warm, dry, intact, normal color. Absent: rash ED Course Vital Signs 02/21/19 10:56 Temperature 98.8 F Pulse Rate 50 L Respiratory 16 Rate Blood Pressure 129/85 [Left] O2 Sat by Pulse 96 Oximetry ED Medical Decision Making - Lab Data Result diagrams: 02/21/19 11:42 02/21/19 11:42 Lab Results 02/21/19 02/21/19 02/21/19 Range/Units 11:42 11:42 11:42 WBC 6.6 (4.5-11.0) K/mm3 RBC 3.77 (3.65-5.03) M/mm3 Hgb 13.1 (10.1-14.3) gm/dl Hct 38.1 (30.3-42.9) % MCV 101 H (79-97) fl MCH 35 H (28-32) pg MCHC 34 (30-34) % RDW 13.8 (13.2-15.2) % Plt Count 174 (140-440) K/mm3 Lymph % (Auto) 12.1 L (13.4-35.0) % Jay % (Auto) 7.2 (0.0-7.3) % Eos % (Auto) 0.6 (0.0-4.3) % Baso % (Auto) 1.0 (0.0-1.8) % Lymph # 0.8 L (1.2-5.4) K/mm3 Jay # 0.5 (0.0-0.8) K/mm3 Eos # 0.0 (0.0-0.4) K/mm3 Baso # 0.1 (0.0-0.1) K/mm3 Seg Neutrophils % 79.1 H (40.0-70.0) % Seg Neutrophils # 5.2 (1.8-7.7) K/mm3 Sodium 140 (137-145) mmol/L Potassium 3.9 (3.6-5.0) mmol/L Chloride 105.5 (98-107) mmol/L Carbon Dioxide 24 (22-30) mmol/L Anion Gap 14 mmol/L BUN 8 (7-17) mg/dL Creatinine 0.8 (0.7-1.2) mg/dL Estimated GFR > 60 ml/min BUN/Creatinine Ratio 10 % Glucose 99 (65-100) mg/dL Calcium 8.7 (8.4-10.2) mg/dL Total Bilirubin 0.30 (0.1-1.2) mg/dL AST 12 (5-40) units/L ALT 8 (7-56) units/L Alkaline Phosphatase 54 (35-129) units/L Total Protein 7.5 (6.3-8.2) g/dL Albumin 4.1 (3.9-5) g/dL Albumin/Globulin Ratio 1.2 % HCG, Qual (Negative) Salicylates < 0.3 L (2.8-20.0) mg/dL Acetaminophen (10.0-30.0) ug/mL Plasma/Serum Alcohol (0-0.07) % 02/21/19 02/21/19 02/21/19 Range/Units 11:42 11:42 11:42 WBC (4.5-11.0) K/mm3 RBC (3.65-5.03) M/mm3 Hgb (10.1-14.3) gm/dl Hct (30.3-42.9) % MCV (79-97) fl MCH (28-32) pg MCHC (30-34) % RDW (13.2-15.2) % Plt Count (140-440) K/mm3 Lymph % (Auto) (13.4-35.0) % Jay % (Auto) (0.0-7.3) % Eos % (Auto) (0.0-4.3) % Baso % (Auto) (0.0-1.8) % Lymph # (1.2-5.4) K/mm3 Jay # (0.0-0.8) K/mm3 Eos # (0.0-0.4) K/mm3 Baso # (0.0-0.1) K/mm3 Seg Neutrophils % (40.0-70.0) % Seg Neutrophils # (1.8-7.7) K/mm3 Sodium (137-145) mmol/L Potassium (3.6-5.0) mmol/L Chloride (98-107) mmol/L Carbon Dioxide (22-30) mmol/L Anion Gap mmol/L BUN (7-17) mg/dL Creatinine (0.7-1.2) mg/dL Estimated GFR ml/min BUN/Creatinine Ratio % Glucose (65-100) mg/dL Calcium (8.4-10.2) mg/dL Total Bilirubin (0.1-1.2) mg/dL AST (5-40) units/L ALT (7-56) units/L Alkaline Phosphatase (35-129) units/L Total Protein (6.3-8.2) g/dL Albumin (3.9-5) g/dL Albumin/Globulin Ratio % HCG, Qual Negative (Negative) Salicylates (2.8-20.0) mg/dL Acetaminophen < 5.0 L (10.0-30.0) ug/mL Plasma/Serum Alcohol < 0.01 (0-0.07) % - Medical Decision Making 1013 applied Awaiting psychiatric evaluation Critical care attestation.: If time is entered above; I have spent that time in minutes in the direct care of this critically ill patient, excluding procedure time. ED Disposition Clinical Impression: Auditory hallucinations Disposition: DC/TX-65 PSY HOSP/PSY UNIT Is pt being admited?: No Does the pt Need Aspirin: No Condition: Stable Referrals: PRIMARY CARE, [Referring] - 3-5 Days
[2019-02-21] MEDS ORDERED: GEODON IM ONE ×2 (17:34→17:58)
[2019-02-21 22:46] LABS: HCG Qualitative,Urine Positive (Negative)
[2019-02-21 22:52] LABS: Bilirubin,Urine NEG (Negative); Blood,Urine NEG (Negative); Color,Urine Yellow (Yellow); Mucus,Urine FEW /HPF; Protein,Urine <15 mg/dL mg/dL (Negative); Urobilinogen,Urine < 2.0 mg/dL (<2.0)
[2019-02-21 22:59] LABS: Amphetamine Screen,Urine PRESUMPTIVE NEGATIVE; Benzodiazepines Screen,Urine PRESUMPTIVE NEGATIVE; Cannabinoid Screen,Urine PRESUMPTIVE NEGATIVE; Cocaine Screen,Urine PRESUMPTIVE NEGATIVE; Methadone Screen,Urine PRESUMPTIVE NEGATIVE; Opiate Screen,Urine PRESUMPTIVE NEGATIVE
[2019-02-22] MEDS ORDERED: HALDOL ONE (00:34)
[2019-02-22] MEDS ORDERED: ATIVAN ONE (00:34)
[2019-02-22] MEDS ORDERED: HALDOL IM ONE (00:35)
[2019-02-22] MEDS ORDERED: ATIVAN IM ONE (00:35)
--- NOTE | 2019-02-22 13:52 | Consultation ---
History of Present Illness - Reason for Consult Consult date: 02/22/19 Reason for consult: Mental Health Evaluation Requesting physician: MELA FLOR - Chief Complaint Chief complaint: "I feel much better" - History of Present Psychiatric Illness 43 y.o. AA female who presented to the ER for Ah's. Today the patient was calm and cooperative during the assessment. She stated that she felt "weird" yes terday prior to coming to the ER. She stated hat her Keppra was increased by her neurologist, that may have been her problem per the patient. She was asked about her mental health, she stated that she has a hx of a mood do and PTSD. She stated that she receive the monthly Invega injection per Dr Thakur her psychiatrist. Per collateral information from her fiancee Mr Jose Rodrigez who was at the bedside, he confirmed the patient's information about her medical and mental health. He stated that the patient was mistreated by her family (PTSD) for several years. He stated that the patient is at her baseline. The patient denies being abused prior to coming to the ER. She denies SI/HI's and AVH's. She denies erratic sleep and a poor appetite. She denies recreational drug use and alcohol consumption (etoh). Medications and Allergies Allergies Allergy/AdvReac Type Severity Reaction Status Date / Time acetaminophen [From Vicodin] Allergy Anaphylaxis Verified 02/21/19 10:57 codeine Allergy Anaphylaxis Verified 02/21/19 10:57 hydrocodone bitartrate Allergy Anaphylaxis Verified 02/21/19 10:57 [From Vicodin] Home Medications Medication Instructions Recorded Confirmed Last Taken Type Paliperidone [Invega] 3 mg PO DAILY 03/08/17 02/21/19 06/17/18 History levETIRAcetam [Keppra] 500 mg PO BID #90 tablet 06/17/18 02/21/19 Unknown Rx hydrOXYzine 1 caplet PO TID 02/08/19 02/21/19 02/07/19 History Past psychiatric history - Past Medical History Past Medical History: seizures Past Surgical History: No surgical history - past Psychiatric treatment and history psychiatric treatment history: Hx of PTSD and a mood do per the patient and Jose Orr her fiancee. Denies a fam psy hx. - Social History Social history: lives with family Mental Status Exam - Vital signs Last Vital Signs Temp 98.3 F 02/22/19 07:00 Pulse 95 H 02/22/19 07:00 Resp 18 02/22/19 07:00 BP 118/78 02/22/19 07:00 Pulse Ox 95 02/22/19 07:00 - Exam Narrative exam: MSE: Appearance: calm, cooperative Behavior: regular eye contact Speech: regular rate and tone Mood: 'better" Affect: congruent to mood Thought Process: logical Thought Content: denies SI/HI's and AVH's Motor Activity: ambulatory Cognition: A/O x3 Insight: fair Judgment: appropriate Results Result Diagrams: 02/21/19 11:42 02/21/19 11:42 Abnormal lab results 02/21/19 Range/Units 22:10 U Epithel Cells (Auto) 20.0 H (0-13.0) /HPF Urine HCG, Qual Positive A (Negative) All other labs normal. Assessment and Plan Assessment and plan: Impression: No overt psychosis with the patient. Hx of Mood and PTSD. Today the patient was calm and cooperative during the assessment. DDx; Medication Induced psychosis Recommendation/Plan: Rescind 1013. The patient receive the monthly Invega injection. Dispo: The patient can follow up with Dr Thakur for outpatient psy services. Will staff with Dr. Ekaterina Finley.
[2019-02-22 14:19] VITALS: BP 115/84
== END 2019-02-22 15:07 ==
LOC: ED 10:51 → EEVIPCON 10:51 → ED 02-22 15:07
DX: R44.0 Auditory hallucinations (principal); K21.9 Gastro-esophageal reflux disease without esophagitis; F31.9 Bipolar disorder, unspecified; F32.9 Major depressive disorder, single episode, unspecified; Q90.9 Down syndrome, unspecified; Z88.6 Allergy status to analgesic agent; Z88.5 Allergy status to narcotic agent; Z79.899 Other long term (current) drug therapy
CPT/HCPCS: 36415; 80053; 80307; 81001; 81025; 84702; 84703; 85025; 96372; 99284; G0480; J1630; J2060; J3486; 80320

== ENCOUNTER 2019-02-25 08:09 | Emergency (ER) | payer MEDICARE ==
[2019-02-25] MEDS ORDERED: WATER FOR INJ Sterile (PF) 10 ML ONE (10:24)
[2019-02-25] MEDS ORDERED: GEODON IM ONE ×2 (10:24→10:31)
--- NOTE | 2019-02-25 11:01 | Emergency Department Report ---
ED Psych HPI - General Chief Complaint: Psych Stated Complaint: MH Time Seen by Provider: 02/25/19 08:42 Source: patient, family Mode of arrival: Ambulatory - History of Present Illness Initial Comments: 43-year-old female with history of mood disorder and PTSD presents to ED with auditory hallucinations and psychosis. Yossihannah states patient believes someone is trying to blow up their house and states that they need to get out of there quickly. Patient seen for same and discharged from this ED 3 days ago. Devyn says patient received Invega injection 5 days ago. States has not been able to see psychiatrist - Related Data Home Medications Medication Instructions Recorded Confirmed Last Taken Paliperidone [Invega] 3 mg PO DAILY 03/08/17 02/25/19 06/17/18 hydrOXYzine 1 caplet PO TID 02/08/19 02/25/19 02/07/19 Previous Rx's Medication Instructions Recorded Last Taken Type levETIRAcetam [Keppra] 500 mg PO BID #90 tablet 06/17/18 Unknown Rx Allergies Allergy/AdvReac Type Severity Reaction Status Date / Time acetaminophen [From Vicodin] Allergy Anaphylaxis Verified 02/21/19 10:57 codeine Allergy Anaphylaxis Verified 02/21/19 10:57 hydrocodone bitartrate Allergy Anaphylaxis Verified 02/21/19 10:57 [From Vicodin] ED Review of Systems ROS: Stated complaint: MH Other details as noted in HPI ED Past Medical Hx - Past Medical History Previous Medical History?: Yes Hx Hypertension: Yes (with ) Hx Congestive Heart Failure: No Hx Diabetes: No Hx Deep Vein Thrombosis: No Hx GERD: Yes Hx Renal Disease: No Hx Sickle Cell Disease: No Hx Seizures: Yes (last over 1 year ago) Hx Psychiatric Treatment: Yes (BIPOLAR / DEPRESSION) Hx Asthma: No Hx COPD: No Hx HIV: No Additional medical history: Congenital heart murmur, Downs Syndrome - Surgical History Past Surgical History?: Yes Additional Surgical History: Hernia repair x 2 - Social History Smoking Status: Current Every Day Smoker Substance Use Type: Prescribed - Medications Home Medications: Home Medications Medication Instructions Recorded Confirmed Last Taken Type Paliperidone [Invega] 3 mg PO DAILY 03/08/17 02/25/19 06/17/18 History levETIRAcetam [Keppra] 500 mg PO BID #90 tablet 06/17/18 02/25/19 Unknown Rx hydrOXYzine 1 caplet PO TID 02/08/19 02/25/19 02/07/19 History ED Physical Exam - General Limitations: No Limitations ED Course Vital Signs 02/25/19 02/25/19 02/25/19 08:19 09:09 17:41 Temperature 98.7 F Pulse Rate 107 H 104 H Respiratory 20 18 16 Rate Blood Pressure 122/73 Blood Pressure 129/64 [Left] O2 Sat by Pulse 99 99 Oximetry ED Medical Decision Making - Lab Data Result diagrams: 02/25/19 10:58 02/25/19 10:58 - Medical Decision Making Pt placed on 1013. Labs unremarkable. Patient is medically clear for mental health evaluation. Critical care attestation.: If time is entered above; I have spent that time in minutes in the direct care of this critically ill patient, excluding procedure time. ED Disposition Clinical Impression: Psychosis Disposition: DC/TX-65 PSY HOSP/PSY UNIT Is pt being admited?: No Condition: Stable Referrals: SHRADDHA FELICIANO MD [Primary Care Provider] - 3-5 Days
[2019-02-25 11:21] LABS: Basophils # (Auto) 0.1 K/mm3 (0.0-0.1); Basophils % (Auto) 1.2 % (0.0-1.8); Eosinophils % (Auto) 0.5 % (0.0-4.3); Hematocrit 39.3 % (30.3-42.9); Hemoglobin 13.3 gm/dl (10.1-14.3); Lymphocytes # (Auto) 0.6 K/mm3 (1.2-5.4); Lymphocytes % (Auto) 11.7 % (13.4-35.0); Mean Corpuscular HGB Conc 34 % (30-34); Mean Corpuscular Volume 101 fl (79-97); Monocytes # (Auto) 0.4 K/mm3 (0.0-0.8); Monocytes % (Auto) 8.2 % (0.0-7.3); Platelet Count 164 K/mm3 (140-440); Red Blood Count 3.89 M/mm3 (3.65-5.03); Red Cell Distribution Width 13.3 % (13.2-15.2)
[2019-02-25 11:41] LABS: Alanine Aminotransferase 7 units/L (7-56); Albumin 4.3 g/dL (3.9-5); BUN/Creatinine Ratio 8; Blood Urea Nitrogen 8 mg/dL (7-17); Calcium 8.8 mg/dL (8.4-10.2); Hemolysis Index 3
[2019-02-25 11:42] LABS: Bilirubin,Direct < 0.2 mg/dL (0-0.2)
[2019-02-25] MEDS ORDERED: ATIVAN ONE (11:56)
[2019-02-25] MEDS ORDERED: ATIVAN IM ONE (11:59)
[2019-02-25 13:22] LABS: Bacteria,Urine 1+ /HPF (Negative); Bilirubin,Urine NEG (Negative); Blood,Urine NEG (Negative); Color,Urine Amber (Yellow); Mucus,Urine 1+ /HPF
[2019-02-25 13:24] LABS: HCG Qualitative,Urine Negative (Negative)
[2019-02-25 13:26] LABS: Amphetamine Screen,Urine PRESUMPTIVE NEGATIVE; Benzodiazepines Screen,Urine PRESUMPTIVE NEGATIVE; Cocaine Screen,Urine PRESUMPTIVE NEGATIVE; Methadone Screen,Urine PRESUMPTIVE NEGATIVE; Opiate Screen,Urine PRESUMPTIVE NEGATIVE
[2019-02-25 13:54] LABS: Cannabinoid Screen,Urine PRESUMPTIVE POSITIVE
[2019-02-25] MEDS: KEPPRA PO SCH ×2 (14:44→23:05)
--- NOTE | 2019-02-26 08:29 | Consultation ---
History of Present Illness - Reason for Consult Consult date: 02/26/19 Reason for consult: Mental Health Evaluatiopn Requesting physician: MICHELLE MARSHALL - Chief Complaint Chief complaint: "i am hearing things in my left ear" - History of Present Psychiatric Illness 43 y.o. AA female who presented to the ER for acute psychosis. This patient is known to me. Today the patient was calm, but disorganized during the assessment. She is adamant that she has a "bluetooth" in her left ear. She stated that "people" are yelling at her. She could not confirm or deny if the voices are telling her to do something when asked. Throughout the interview, the patient had to be redirected to keep her on topic. She appeared to be somewhat preoccupied. She denies SI/HI's and VH's. Overall, the patient is a poor historian. The patient was positive for marijuana, Medications and Allergies Allergies Allergy/AdvReac Type Severity Reaction Status Date / Time acetaminophen [From Vicodin] Allergy Anaphylaxis Verified 02/21/19 10:57 codeine Allergy Anaphylaxis Verified 02/21/19 10:57 hydrocodone bitartrate Allergy Anaphylaxis Verified 02/21/19 10:57 [From Vicodin] Home Medications Medication Instructions Recorded Confirmed Last Taken Type Paliperidone [Invega] 3 mg PO DAILY 03/08/17 02/25/19 06/17/18 History levETIRAcetam [Keppra] 500 mg PO BID #90 tablet 06/17/18 02/25/19 Unknown Rx hydrOXYzine 1 caplet PO TID 02/08/19 02/25/19 02/07/19 History Active Meds: Active Medications Levetiracetam (Keppra) 500 mg PO BID KENISHA Last Admin: 02/25/19 23:05 Dose: 500 mg Documented by: Past psychiatric history - Past Medical History Past Medical History: seizures Past Surgical History: No surgical history - past Psychiatric treatment and history psychiatric treatment history: Hx of Mood/Psychotic DO and PTSD. Denies a fam psy hx. - Social History Social history: lives with family Mental Status Exam - Vital signs Last Vital Signs Temp 98.3 F 02/26/19 07:50 Pulse 88 02/26/19 07:50 Resp 18 02/26/19 07:50 BP 112/77 02/26/19 07:50 Pulse Ox 100 02/26/19 07:50 - Exam Narrative exam: MSE: Appearance: calm, cooperative Behavior: regular eye contact Speech: regular rate and tone Mood: somewhat preoccupied Affect: flat Thought Process: disorganized Thought Content: denies SI/HI's and VH's, delusional Motor Activity: ambulatory Cognition: A/O x3 Insight: poor Judgment: variable Results Result Diagrams: 02/25/19 10:58 02/25/19 10:58 Abnormal lab results 02/25/19 02/25/19 02/25/19 Range/Units 10:58 10:58 10:58 MCV 101 H (79-97) fl MCH 34 H (28-32) pg Lymph % (Auto) 11.7 L (13.4-35.0) % [place] % (Auto) 8.2 H (0.0-7.3) % Lymph # 0.6 L (1.2-5.4) K/mm3 Seg Neutrophils % 78.4 H (40.0-70.0) % U Epithel Cells (Auto) (0-13.0) /HPF Salicylates < 0.3 L (2.8-20.0) mg/dL Acetaminophen < 5.0 L (10.0-30.0) ug/mL 02/25/19 Range/Units 12:57 MCV (79-97) fl MCH (28-32) pg Lymph % (Auto) (13.4-35.0) % [place] % (Auto) (0.0-7.3) % Lymph # (1.2-5.4) K/mm3 Seg Neutrophils % (40.0-70.0) % U Epithel Cells (Auto) 18.0 H (0-13.0) /HPF Salicylates (2.8-20.0) mg/dL Acetaminophen (10.0-30.0) ug/mL All other labs normal. 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 Today the patient was calm, but disorganized during the assessment. DDx; Schizophrenia, Bipolar DO with psychosis, Substance Induced Psychosis Recommendation/Plan: Continue 1013. The patient receive the monthly Invega injection. Dispo: The patient was referred to the 5th floor ([facility]). Will staff with Dr. Ekaterina Finley.
[2019-02-26] MEDS: KEPPRA PO SCH (10:55)
[2019-02-26 14:00] VITALS: BP 117/71
== END 2019-02-26 18:33 ==
LOC: EEVIPCON 08:09 → ED 08:09
DX: F31.9 Bipolar disorder, unspecified (principal); I10 Essential (primary) hypertension; K21.0 Gastro-esophageal reflux disease with esophagitis; Q90.9 Down syndrome, unspecified; F17.200 Nicotine dependence, unspecified, uncomplicated; Z79.899 Other long term (current) drug therapy; Z88.6 Allergy status to analgesic agent; Z88.8 Allergy status to other drugs, medicaments and biological substances
CPT/HCPCS: 36415; 80048; 80076; 80307; 81001; 81025; 85025; 96372; 99285; G0480; J2060; J3486; 80320

== ENCOUNTER 2019-03-16 10:37 | Emergency (ER) | payer MEDICARE ==
[2019-03-16 11:19] LABS: Basophils # (Auto) 0.1 K/mm3 (0.0-0.1); Basophils % (Auto) 0.6 % (0.0-1.8); Eosinophils % (Auto) 0.4 % (0.0-4.3); Hematocrit 35.8 % (30.3-42.9); Hemoglobin 12.3 gm/dl (10.1-14.3); Lymphocytes # (Auto) 0.9 K/mm3 (1.2-5.4); Lymphocytes % (Auto) 8.5 % (13.4-35.0); Mean Corpuscular HGB Conc 34 % (30-34); Mean Corpuscular Volume 99 fl (79-97); Monocytes % (Auto) 9.6 % (0.0-7.3); Platelet Count 180 K/mm3 (140-440); Red Blood Count 3.61 M/mm3 (3.65-5.03)
[2019-03-16 11:39] LABS: BUN/Creatinine Ratio 13; Blood Urea Nitrogen 10 mg/dL (7-17); Calcium 8.5 mg/dL (8.4-10.2); Hemolysis Index 43
--- NOTE | 2019-03-16 11:46 | Emergency Department Report ---
HPI - General Chief Complaint: Psych Time Seen by Provider: 03/16/19 11:19 - HPI HPI: Room 10 The patient is a 43-year-old female presenting with a chief complaint of schizophrenia. The patient's fianc states for the past 3 days a patient's had intermittent episodes of staring and not talking. The patient has a history of schizophrenia and has been compliant with her medication. The fianc took the patient to her neurologist yesterday (Dr. Veronica) who stated the patient's psychiatric medications need to be adjusted. The fianc took the patient to the psychiatrist's office today however the psychiatrist will not be available until after the weekend. The fianc states the patient has not made any suicidal or homicidal statements. The patient does not answer any questions when asked directly Location: Mental state Duration: [See above] Quality: [See above] Severity: [See above] Modifying factors: [see above] Context: [see above] Mode of transportation: [not driving] ED Past Medical Hx - Past Medical History Previous Medical History?: Yes Hx Hypertension: Yes (with ) Hx GERD: Yes Hx Seizures: Yes (last over 1 year ago) Hx Psychiatric Treatment: Yes (BIPOLAR / DEPRESSION) Additional medical history: Congenital heart murmur, Downs Syndrome - Surgical History Past Surgical History?: Yes Additional Surgical History: Hernia repair x 2 - Family History Family history: no significant - Social History Smoking Status: Current Every Day Smoker (1/2 pack per day) Substance Use Type: None (denies illicit drug use), Alcohol (occasional) - Medications Home Medications: Home Medications Medication Instructions Recorded Confirmed Last Taken Type Paliperidone [Invega] 3 mg PO DAILY 03/08/17 02/25/19 06/17/18 History levETIRAcetam [Keppra] 500 mg PO BID #90 tablet 06/17/18 02/25/19 Unknown Rx hydrOXYzine 1 caplet PO TID 02/08/19 02/25/19 02/07/19 History ED Review of Systems ROS: Stated complaint: MH EVALUATION Other details as noted in HPI Comment: Unobtainable due to pts medical conditions Physical Exam - Physical Exam Vital Signs: Vital Signs 03/16/19 10:43 Temperature 98.0 F Pulse Rate 92 H Respiratory 20 Rate O2 Sat by Pulse 97 Oximetry Physical Exam: GENERAL: The patient is well-developed well-nourished female lying on stretcher nonverbal and not appearing to be in acute distress. [] HEENT: Normocephalic. Atraumatic. Extraocular motions are intact. Patient has moist mucous membranes. NECK: Supple. Trachea midline CHEST/LUNGS: Clear to auscultation. There is no respiratory distress noted. HEART/CARDIOVASCULAR: Regular. There is no tachycardia. There is no gallop rub or murmur. ABDOMEN: Abdomen is soft, nontender. Patient has normal bowel sounds. There is no abdominal distention. SKIN: There is no rash. There is no edema. There is no diaphoresis. NEURO: The patient is awake but does not respond verbally. The patient is not cooperative cooperative with neurologic exam. The patient exhibits waxy catatonia at times. MUSCULOSKELETAL: There is no evidence of acute injury. ED Course Vital Signs 03/16/19 10:43 Temperature 98.0 F Pulse Rate 92 H Respiratory 20 Rate O2 Sat by Pulse 97 Oximetry ED Medical Decision Making - Lab Data Result diagrams: 03/16/19 11:06 03/16/19 11:06 Laboratory Results - last 24 hr 03/16/19 03/16/19 03/16/19 11:06 11:06 11:06 WBC RBC Hgb Hct MCV MCH MCHC RDW Plt Count Lymph % (Auto) [place] % (Auto) Eos % (Auto) Baso % (Auto) Lymph # Hamilton # Eos # Baso # Seg Neutrophils % Seg Neutrophils # Sodium 139 Potassium 4.1 Chloride 104.0 Carbon Dioxide 25 Anion Gap 14 BUN 10 Creatinine 0.8 Estimated GFR > 60 BUN/Creatinine Ratio 13 Glucose 96 Calcium 8.5 Salicylates < 0.3 L Acetaminophen < 5.0 L Plasma/Serum Alcohol 03/16/19 03/16/19 11:06 11:06 WBC 10.3 RBC 3.61 L Hgb 12.3 Hct 35.8 MCV 99 H MCH 34 H MCHC 34 RDW 13.0 L Plt Count 180 Lymph % (Auto) 8.5 L Hamilton % (Auto) 9.6 H Eos % (Auto) 0.4 Baso % (Auto) 0.6 Lymph # 0.9 L Hamilton # 1.0 H Eos # 0.0 Baso # 0.1 Seg Neutrophils % 80.9 H Seg Neutrophils # 8.4 H Sodium Potassium Chloride Carbon Dioxide Anion Gap BUN Creatinine Estimated GFR BUN/Creatinine Ratio Glucose Calcium Salicylates Acetaminophen Plasma/Serum Alcohol < 0.01 - Differential Diagnosis schizophrenia, catatonia Critical care attestation.: If time is entered above; I have spent that time in minutes in the direct care of this critically ill patient, excluding procedure time. ED Disposition Clinical Impression: Acute psychosis, Catatonia Disposition: DC/TX-65 PSY HOSP/PSY UNIT Is pt being admited?: No Does the pt Need Aspirin: No Condition: Fair Referrals: PRIMARY CARE, [Primary Care Provider] - 3-5 Days Time of Disposition: 13:43 (awaiting acceptance)
[2019-03-16] MEDS ORDERED: ATIVAN IM SCH (14:00)
--- NOTE | 2019-03-16 14:05 | Consultation ---
History of Present Illness - Reason for Consult Consult date: 03/16/19 Reason for consult: Mental Health Evaluation Requesting physician: LOYD CHAWLA - Chief Complaint Chief complaint: 'The patient has a blank stare" - History of Present Psychiatric Illness 43-year-old AA female who presented to the ER bizarre behavior. This patient is known to me. Today the patient was nonverbal with a blank stare during the assessment. Several attempts was made to engage the patient, but was unsuccessful. Medications and Allergies Allergies Allergy/AdvReac Type Severity Reaction Status Date / Time acetaminophen [From Vicodin] Allergy Anaphylaxis Verified 02/21/19 10:57 codeine Allergy Anaphylaxis Verified 02/21/19 10:57 hydrocodone bitartrate Allergy Anaphylaxis Verified 02/21/19 10:57 [From Vicodin] Home Medications Medication Instructions Recorded Confirmed Last Taken Type Paliperidone [Invega] 3 mg PO DAILY 03/08/17 02/25/19 06/17/18 History levETIRAcetam [Keppra] 500 mg PO BID #90 tablet 06/17/18 02/25/19 Unknown Rx hydrOXYzine 1 caplet PO TID 02/08/19 02/25/19 02/07/19 History Active Meds: Active Medications Lorazepam (Ativan) 1 mg IM ONCE KENISHA Past psychiatric history - Past Medical History Past Medical History: seizures Past Surgical History: Other (Unable to obtain ) - past Psychiatric treatment and history psychiatric treatment history: Hx of Schizophrenia. Unable to obtain a fam psy hx. - Social History Social history: other (Reside with her fiance) Mental Status Exam - Vital signs Last Vital Signs Temp 98.9 F 03/16/19 12:57 Pulse 100 H 03/16/19 12:57 Resp 20 03/16/19 13:43 BP 124/87 03/16/19 12:57 Pulse Ox 98 03/16/19 12:57 - Exam Narrative exam: Unable to complete the MSE because of the patient's condition. Results Result Diagrams: 03/16/19 11:06 03/16/19 11:06 Abnormal lab results 03/16/19 03/16/19 03/16/19 Range/Units 11:06 11:06 11:06 RBC 3.61 L (3.65-5.03) M/mm3 MCV 99 H (79-97) fl MCH 34 H (28-32) pg RDW 13.0 L (13.2-15.2) % Lymph % (Auto) 8.5 L (13.4-35.0) % Greer % (Auto) 9.6 H (0.0-7.3) % Lymph # 0.9 L (1.2-5.4) K/mm3 Greer # 1.0 H (0.0-0.8) K/mm3 Seg Neutrophils % 80.9 H (40.0-70.0) % Seg Neutrophils # 8.4 H (1.8-7.7) K/mm3 Salicylates < 0.3 L (2.8-20.0) mg/dL Acetaminophen < 5.0 L (10.0-30.0) ug/mL All other labs normal. Assessment and Plan Assessment and plan: Impression: Unspecified Psychosis. Catatonia. Today the patient was nonverbal with a blank stare during the assessment. UDS/UA need to be collected DDx; Schizophrenia, Bipolar DO with psychosis Recommendation/Plan: Continue 1013. Ativan 1 mg IM once to R/O catatonia. The patient receive the monthly Invega injection. Dispo: The patient was referred to inpatient psy services. Will staff with Dr. Ekaterina Finley.
[2019-03-16 15:59] LABS: Amphetamine Screen,Urine PRESUMPTIVE NEGATIVE; Benzodiazepines Screen,Urine PRESUMPTIVE NEGATIVE; Cocaine Screen,Urine PRESUMPTIVE NEGATIVE; Methadone Screen,Urine PRESUMPTIVE NEGATIVE; Opiate Screen,Urine PRESUMPTIVE NEGATIVE
[2019-03-16 16:08] LABS: Bilirubin,Urine NEG (Negative); Blood,Urine NEG (Negative); Color,Urine Yellow (Yellow); Mucus,Urine 2+ /HPF; Protein,Urine <15 mg/dL mg/dL (Negative); WBC,Urine < 1.0 /HPF (0.0-6.0)
[2019-03-16 16:10] LABS: Cannabinoid Screen,Urine PRESUMPTIVE POSITIVE
[2019-03-16 18:40] VITALS: BP 118/76
[2019-03-16] MEDS ORDERED: KEPPRA PO ONE (19:32)
[2019-03-16] MEDS ORDERED: ATIVAN PO SCH ×2 (20:00)
== END 2019-03-16 21:03 ==
LOC: ED 10:37
DX: F20.2 Catatonic schizophrenia (principal); F29 Unspecified psychosis not due to a substance or known physiological condition; I10 Essential (primary) hypertension; K21.9 Gastro-esophageal reflux disease without esophagitis; F31.9 Bipolar disorder, unspecified; F17.210 Nicotine dependence, cigarettes, uncomplicated; Q90.9 Down syndrome, unspecified; Z88.6 Allergy status to analgesic agent; Z88.8 Allergy status to other drugs, medicaments and biological substances
CPT/HCPCS: 36415; 80048; 80307; 81001; 82550; 84703; 85025; 96372; 99285; J2060; 80320; G0480

== ENCOUNTER 2019-12-12 15:32 | Observation (INO) | payer MEDICARE ==
[2019-12-12 16:41] LABS: Basophils # (Auto) 0.1 K/mm3 (0.0-0.1); Basophils % (Auto) 1.2 % (0.0-1.8); Eosinophils # (Auto) 0.1 K/mm3 (0.0-0.4); Eosinophils % (Auto) 1.7 % (0.0-4.3); Hematocrit 39.9 % (30.3-42.9); Hemoglobin 13.4 gm/dl (10.1-14.3); Lymphocytes # (Auto) 1.1 K/mm3 (1.2-5.4); Lymphocytes % (Auto) 21.5 % (13.4-35.0); Mean Corpuscular HGB Conc 34 % (30-34); Mean Corpuscular Volume 105 fl (79-97); Monocytes # (Auto) 0.5 K/mm3 (0.0-0.8); Monocytes % (Auto) 9.1 % (0.0-7.3); Platelet Count 220 K/mm3 (140-440); Red Cell Distribution Width 14.3 % (13.2-15.2)
[2019-12-12 16:51] LABS: INR 0.98 (0.87-1.13)
[2019-12-12 16:52] LABS: Partial Thromboplastin Time 41.1 Sec. (24.2-36.6)
[2019-12-12 17:03] LABS: BUN/Creatinine Ratio 8; Blood Urea Nitrogen 7 mg/dL (7-17); Calcium 9.4 mg/dL (8.4-10.2); Hemolysis Index 7
[2019-12-12] MEDS ORDERED: DICYCLOMINE 20 MG/2 ML INJ IM ONE (17:07)
[2019-12-12] MEDS ORDERED: SODIUM CHLORIDE 0.9% 1000 ML 1,000 ML IV ONE (17:07)
--- NOTE | 2019-12-12 18:43 | Cat Scan Report ---
CT abdomen pelvis w con INDICATION: abd pain with lower GI bleeding. TECHNIQUE: All CT scans at this location are performed using the following dose modulation technique: Automated exposure control. CONTRAST: Omnipaque 300, 100 cc IV injection. COMPARISON: None available. CT ABDOMEN: The parenchymal organs are unremarkable in appearance. Negative for abdominal mass, fluid or inflammation. The bowel is not dilated or thickened. A midline ventral hernia just above the umbi licus contains fat. CT PELVIS: Negative for pelvic mass, adenopathy or inflammation. Noninflamed diverticula are greatest at the descending colon. IMPRESSION: 1. Noninflamed colonic diverticulosis. 2. Recurrent midline ventral hernia following mesh removal. Signer Name: Tanner Guy MD Signed: 12/12/2019 6:38 PM Workstation Name: [email or web address]
--- NOTE | 2019-12-12 19:27 | History and Physical Report ---
History of Present Illness Chief complaint: She had blood in her stool History of present illness: 44 YO Female with Seizure Disorder, HTN, GERD, Bipolar, Depression, Schizophrenia, Nicotine Dependence, Downs Syndrome presents to ED for evaluation. Pt has cognitive delay and is unable to provide detailed history. Pt history provided by her who is at bedside during exam and interview. As per , the patient was found to have 3 bloody bowel movements today as well as abdominal pain. Patient transported to [facility] for further evaluation and care. Pt seen and evaluated in ED. lab and imaging studies reviewed. Patient was found to be Hemoccult positive, CT scan of the abdomen and pelvis revealed diverticulosis. Patient was found to have evidence of GI bleed suspected secondary to diverticulosis. Pt admitted to telemetry and initiated on GI bleed protocol due to increased risk of decompensation and worsening of the gastrointestinal hemorrhage. No further history is obtainable. No reports of fever, chills, CP, Palpitations, Trauma, Falls, Skin Rash, productive cough, ingestion of food/water from new or different sources, or recent ill contacts, or known exposure to COVID-19. Prior admission on 02/08/2019 reviewed. All medication listed at time of admission has been reconciled. Past History Past Medical History: GERD, hypertension, other (See HPI) Past Surgical History: hernia repair Social history: , lives with family, smoking Family history: hypertension Medications and Allergies Allergies Allergy/AdvReac Type Severity Reaction Status Date / Time acetaminophen [From Vicodin] Allergy Anaphylaxis Verified 02/21/19 10:57 codeine Allergy Anaphylaxis Verified 02/21/19 10:57 hydrocodone bitartrate Allergy Anaphylaxis Verified 02/21/19 10:57 [From Vicodin] Home Medications Medication Instructions Recorded Confirmed Last Taken Type Paliperidone [Invega] 3 mg PO DAILY 03/08/17 02/25/19 06/17/18 History levETIRAcetam [Keppra] 500 mg PO BID #90 tablet 06/17/18 03/16/19 Unknown Rx Review of Systems ROS unobtainable: due to mental status Exam - Constitutional Vitals: Temp Pulse Resp BP Pulse Ox 98.7 F 72 18 124/74 97 12/12/19 19:10 12/12/19 19:10 12/12/19 19:10 12/12/19 19:10 12/12/19 19:10 General appearance: Present: mild distress - EENT Eyes: Present: PERRL ENT: clear oral mucosa, hearing decreased - Neck Neck: Present: supple, normal ROM - Respiratory Respiratory effort: normal Respiratory: bilateral: CTA - Cardiovascular Heart Sounds: Present: S1 & S2. Absent: rub, click - Extremities Extremities: pulses symmetrical, No edema Peripheral Pulses: within normal limits - Abdominal General gastrointestinal: Present: soft, non-tender, non-distended, normal bowel sounds Female genitourinary: Present: normal - Integumentary Integumentary: Present: clear, warm, dry - Musculoskeletal Musculoskeletal: gait normal, strength equal bilaterally - Psychiatric Psychiatric: no appropriate mood/affect, no intact judgment & insight, no memory intact, cooperative - Neurologic Neurologic: CNII-XII intact, no focal deficits, moves all extremities, no gait normal Results - Labs CBC & Chem 7: 12/12/19 16:07 12/12/19 16:07 Labs: Abnormal lab results 12/12/19 12/12/19 12/12/19 Range/Units 16:07 16:07 16:07 MCV 105 H (79-97) fl MCH 35 H (28-32) pg [place] % (Auto) 9.1 H (0.0-7.3) % Lymph # 1.1 L (1.2-5.4) K/mm3 APTT 41.1 H (24.2-36.6) Sec. Carbon Dioxide 20 L (22-30) mmol/L Glucose 141 H (65-100) mg/dL Assessment and Plan - Patient Problems (1) Gastrointestinal hemorrhage Current Visit: Yes Status: Acute Qualifiers: GI bleed type/associated pathology: diverticulosis Qualified Code(s): K57.91 - Diverticulosis of intestine, part unspecified, without perforation or abscess with bleeding Plan to address problem: CT scan abdomen and pelvis, supportive care, CBC, repeat CBC in a.m., IV PPI therapy, GI consulted in ED. (2) Down's syndrome Current Visit: No Status: Acute (3) GERD (gastroesophageal reflux disease) Current Visit: No Status: Acute Qualifiers: Esophagitis presence: without esophagitis Qualified Code(s): K21.9 - Gastro-esophageal reflux disease without esophagitis Plan to address problem: PPI therapy, supportive care. (4) Nicotine dependence Current Visit: Yes Status: Acute Qualifiers: Substance use status: in withdrawal Plan to address problem: Supportive care, smoking cessation counseling, behavior change counseling, +15 minutes. (5) Schizophrenia Current Visit: Yes Status: Acute Qualifiers: Schizophrenia type: unspecified Qualified Code(s): F20.9 - Schizophrenia, unspecified Plan to address problem: Continue current therapy, outpatient psychiatry follow-up. (6) Seizure disorder Current Visit: Yes Status: Acute Plan to address problem: Continue antiepileptic therapy, supportive care, seizure precautions, aspiration precautions, neuro checks. (7) DVT prophylaxis Current Visit: No Status: Acute Plan to address problem: SCD to bilateral lower extremities while in bed, hold anticoagulation due to active GI bleed.
[2019-12-12] MEDS ORDERED: POLYETHYLENE GLYCOL/ELECT SOLN 4000 ML PO ONE (19:30)
[2019-12-12] MEDS ORDERED: ONDANSETRON 4 MG/2 ML INJ IV PRN (19:31)
[2019-12-12] MEDS ORDERED: ACETAMINOPHEN 325 MG TAB PO PRN (19:31)
--- NOTE | 2019-12-12 19:33 | Emergency Department Report ---
ED Abdominal Pain HPI - General Chief Complaint: GI Bleed Stated Complaint: BLOOD IN STOOL Time Seen by Provider: 12/12/19 17:03 Source: patient Mode of arrival: Ambulatory Limitations: Other - History of Present Illness Initial Comments: Patient is a 44-year-old F Martiniquais female who is presenting with GI bleed. Patient has had 3 episodes of bloody bowel movements today. Patient also does complain of some crampy central abdominal pain. Patient's states that he did see the stool in the toilet and confirms that it was stool that was was dark in color with bright red blood. Patient denies any syncope shortness of breath or chest pain. Patient denies fevers chills nausea vomiting. Severity scale (0 -10): 0 - Related Data Home Medications Medication Instructions Recorded Confirmed Last Taken Paliperidone [Invega] 3 mg PO DAILY 03/08/17 02/25/19 06/17/18 Previous Rx's Medication Instructions Recorded Last Taken Type levETIRAcetam [Keppra] 500 mg PO BID #90 tablet 06/17/18 Unknown Rx Allergies Allergy/AdvReac Type Severity Reaction Status Date / Time acetaminophen [From Vicodin] Allergy Anaphylaxis Verified 02/21/19 10:57 codeine Allergy Anaphylaxis Verified 02/21/19 10:57 hydrocodone bitartrate Allergy Anaphylaxis Verified 02/21/19 10:57 [From Vicodin] ED Review of Systems ROS: Stated complaint: BLOOD IN STOOL Other details as noted in HPI Comment: All other systems reviewed and negative ED Past Medical Hx - Past Medical History Previous Medical History?: Yes Hx Hypertension: Yes (with ) Hx Congestive Heart Failure: No Hx Diabetes: No Hx Deep Vein Thrombosis: No Hx GERD: Yes Hx Renal Disease: No Hx Sickle Cell Disease: No Hx Seizures: Yes (last over 1 year ago) Hx Psychiatric Treatment: Yes (BIPOLAR / DEPRESSION) Hx Asthma: No Hx COPD: No Hx HIV: No Additional medical history: Congenital heart murmur, Downs Syndrome - Surgical History Past Surgical History?: Yes Additional Surgical History: Hernia repair x 2 - Social History Smoking Status: Current Every Day Smoker Substance Use Type: None - Medications Home Medications: Home Medications Medication Instructions Recorded Confirmed Last Taken Type Paliperidone [Invega] 3 mg PO DAILY 03/08/17 02/25/19 06/17/18 History levETIRAcetam [Keppra] 500 mg PO BID #90 tablet 06/17/18 03/16/19 Unknown Rx ED Physical Exam - General Limitations: Other General appearance: alert, in distress (Secondary to pain) - Head Head exam: Present: atraumatic, normocephalic - Eye Eye exam: Present: normal appearance, PERRL, EOMI - ENT ENT exam: Present: mucous membranes moist - Neck Neck exam: Present: normal inspection - Respiratory Respiratory exam: Present: normal lung sounds bilaterally. Absent: respiratory distress, wheezes, rales, rhonchi - Cardiovascular Cardiovascular Exam: Present: regular rate, normal rhythm. Absent: systolic murmur, diastolic murmur, rubs, gallop - GI/Abdominal GI/Abdominal exam: Present: soft, tenderness (Diffuse abdominal tenderness.), normal bowel sounds. Absent: distended, guarding, rebound, rigid - Extremities Exam Extremities exam: Present: normal inspection - Back Exam Back exam: Present: normal inspection - Neurological Exam Neurological exam: Present: alert, oriented X3 - Psychiatric Psychiatric exam: Present: normal affect, normal mood - Skin Skin exam: Present: warm, dry, intact, normal color. Absent: rash ED Course Vital Signs 12/12/19 12/12/19 12/12/19 15:36 17:13 17:26 Temperature 97.7 F 98.9 F Pulse Rate 127 H 98 H Respiratory 16 18 Rate Blood Pressure 150/91 Blood Pressure 136/84 [Left] O2 Sat by Pulse 97 99 97 Oximetry 12/12/19 19:10 Temperature 98.7 F Pulse Rate 72 Respiratory 18 Rate Blood Pressure Blood Pressure 124/74 [Left] O2 Sat by Pulse 97 Oximetry ED Medical Decision Making - Lab Data Result diagrams: 12/12/19 16:07 12/12/19 16:07 - Radiology Data [facility] [address] [place] [address] Cat Scan Report Signed Patient: NANCY CANALES MR#: [id number] : 1975 Acct:[id number] Age/Sex: 44 / F ADM Date: 12/12/19 Loc: ED Attending Dr: Ordering Physician: SUZY PADILLA MD Date of Service: 12/12/19 Procedure(s): CT abdomen pelvis w con Accession Number(s): [id number] cc: SUZY PADILLA MD CT abdomen pelvis w con INDICATION: abd pain with lower GI bleeding. TECHNIQUE: All CT scans at this location are performed using the following dose modulation technique: Automated exposure control. CONTRAST: Omnipaque 300, 100 cc IV injection. COMPARISON: None available. CT ABDOMEN: The parenchymal organs are unremarkable in appearance. Negative for abdominal mass, fluid or inflammation. The bowel is not dilated or thickened. A midline ventral hernia just above the umbilicus contains fat. CT PELVIS: Negative for pelvic mass, adenopathy or inflammation. Noninflamed diverticula are greatest at the descending colon. IMPRESSION: 1. Noninflamed colonic diverticulosis. 2. Recurrent midline ventral hernia following mesh removal. Signer Name: Tanner Guy MD Signed: 12/12/2019 6:38 PM Workstation Name: [email or web address] - Medical Decision Making Patient is a 44-year-old F Martiniquais female was presented with GI bleed. Patient is grossly positive with her rectal exam. Patient CT shows she does have diverticulosis with no obvious diverticulitis at this time. Patient will be admitted for observation. Patient will be seen by our GI team. Dr. Finley was consulted. Patient will need monitoring to ensure that her hemoglobin does not drop further. Critical care attestation.: If time is entered above; I have spent that time in minutes in the direct care of this critically ill patient, excluding procedure time. ED Disposition Clinical Impression: Lower GI bleed, Diverticulosis Disposition: OP ADMIT IP TO THIS HOSP Is pt being admited?: Yes Does the pt Need Aspirin: No Condition: Stable Referrals: SHRADDHA FELICIANO MD [Primary Care Provider] - 3-5 Days Time of Disposition: 19:34
[2019-12-12] MEDS ORDERED: LORazepam 2 MG/ML VIAL IV ONE (20:53)
[2019-12-12] MEDS: levETIRAcetam 500 MG TAB PO SCH (22:50)
[2019-12-12] MEDS: PANTOPRAZOLE 40 MG INJ IV SCH (22:54)
[2019-12-13 04:27] LABS: Basophils # (Auto) 0.1 K/mm3 (0.0-0.1); Basophils % (Auto) 1.9 % (0.0-1.8); Eosinophils # (Auto) 0.1 K/mm3 (0.0-0.4); Eosinophils % (Auto) 2.5 % (0.0-4.3); Hematocrit 37.2 % (30.3-42.9); Hemoglobin 12.4 gm/dl (10.1-14.3); Lymphocytes # (Auto) 1.1 K/mm3 (1.2-5.4); Lymphocytes % (Auto) 20.1 % (13.4-35.0); Mean Corpuscular HGB Conc 33 % (30-34); Mean Corpuscular Volume 107 fl (79-97); Monocytes # (Auto) 0.5 K/mm3 (0.0-0.8); Platelet Count 186 K/mm3 (140-440); Red Blood Count 3.49 M/mm3 (3.65-5.03); Red Cell Distribution Width 14.8 % (13.2-15.2)
[2019-12-13 04:50] LABS: BUN/Creatinine Ratio 6; Blood Urea Nitrogen 5 mg/dL (7-17); Calcium 8.7 mg/dL (8.4-10.2); Hemolysis Index 14
[2019-12-13] MEDS: levETIRAcetam 500 MG TAB PO SCH ×2 (09:00→21:43)
[2019-12-13] MEDS: PANTOPRAZOLE 40 MG INJ IV SCH ×2 (09:45→21:43)
[2019-12-13] MEDS ORDERED: SODIUM CHLORIDE 0.9% 1000 ML 1,000 ML IV SCH (11:00)
--- NOTE | 2019-12-13 12:57 | Anesthesia Consultation ---
<SUNITA LUX - Last Filed: 12/13/19 12:53> Anesthesia Consult and Med Hx Date of service: 12/13/19 - Airway Anesthetic Teeth Evaluation: Edentulous ROM Head & Neck: Adequate Mental/Hyoid Distance: Adequate Mallampati Class: Class I Intubation Access Assessment: Good - Pulmonary Exam CTA: Yes - Pre-Operative Health Status ASA Pre-Surgery Classification: ASA3 Proposed Anesthetic Plan: MAC - Pulmonary Hx Smoking: Yes Hx Asthma: No COPD: No Hx Pneumonia: No - Cardiovascular System Hx Hypertension: Yes (with ) Hx Heart Murmur: Yes - Central Nervous System Hx Seizures: Yes (last over 1 year ago) Hx Psychiatric Problems: Yes (Bipolar Disorder, Depression and Downs Syndrome) - Gastrointestinal Hx Gastroesophageal Reflux Disease: Yes - Endocrine Hx Renal Disease: No Hx End Stage Renal Disease: No Hx Liver Disease: No Hx Hypothyroidism: No Hx Hyperthyroidism: No - Hematic Hx Anemia: No Hx Sickle Cell Disease: No - Other Systems Hx Alcohol Use: Yes Hx Cancer: No Hx Obesity: No <MARYCHUY TAVARES - Last Filed: 12/13/19 13:59> Anesthesia Consult and Med Hx - Pulmonary Hx Respiratory Symptoms: No - Cardiovascular System Hx Hypertension: No - Central Nervous System Hx Seizures: Yes (report of seizure-like activity since admission. Darian brown) - Endocrine Hx Insulin Dependent Diabetes: No Hx Non-Insulin Dependent Diabetes: No
--- NOTE | 2019-12-13 12:58 | Anesthesia Day of Surgery ---
<SUNITA LUX - Last Filed: 12/13/19 12:57> Anesthesia Day of Surgery - Day of Surgery Patient H&P Reviewed: Yes <MARYCHUY TAVARES - Last Filed: 12/13/19 13:57> Anesthesia Day of Surgery - Day of Surgery Patient Examined: Yes Patient H&P Reviewed: Yes Patient is NPO: Yes
--- NOTE | 2019-12-13 13:34 | Gastroenterology Consultation ---
History of Present Illness - Reason for Consult Consult date: 12/13/19 GI bleed Requesting physician: SZUY PADILLA - History of Present Illness This is a pleasant 44-year-old female who presents with rectal bleeding Patient reports starting about 2 days ago she has had bright red blood per rectum multiple bowel movements every time she went to the bathroom Reports approximately 3 episodes I spoke with the nurse this morning she did not know if the patient had any bleeding overnight patient does not think she had bleeding today Patient currently denies any abdominal pain though apparently she did complain yesterday of abdominal pain that was periumbilical, cramping in nature, mild nonradiating She reports never having had a colonoscopy in the past No family history of colon cancer colon polyps Obtained/updated/reviewed patient's current medications Past History Past Medical History: GERD, hypertension, other (See HPI) Past Surgical History: hernia repair Social history: , lives with family, smoking, other (+Etoh use) Family history: hypertension Medications and Allergies Allergies Allergy/AdvReac Type Severity Reaction Status Date / Time acetaminophen [From Vicodin] Allergy Anaphylaxis Verified 02/21/19 10:57 codeine Allergy Anaphylaxis Verified 02/21/19 10:57 hydrocodone bitartrate Allergy Anaphylaxis Verified 02/21/19 10:57 [From Vicodin] Home Medications Medication Instructions Recorded Confirmed Last Taken Type Paliperidone [Invega] 3 mg PO DAILY 03/08/17 12/13/19 06/17/18 History levETIRAcetam [Keppra] 500 mg PO BID #90 tablet 06/17/18 12/13/19 12/12/19 Rx Benztropine Mesylate 1 mg PO QHS 12/13/19 12/13/19 Unknown History Valbenazine Tosylate (Nf) 80 mg PO DAILY 12/13/19 12/13/19 Unknown History [Ingrezza (Nf)] hydrOXYzine PAMOATE [Vistaril] 50 mg PO TID 12/13/19 12/13/19 Unknown History Active Meds: Active Medications Acetaminophen (Tylenol) 650 mg PO Q4H PRN PRN Reason: Pain MILD(1-3)/Fever >100.5/GUY Sodium Chloride (Nacl 0.9% 1000 Ml) 1,000 mls @ 50 mls/hr IV DIRECT KENISHA Levetiracetam (Keppra) 500 mg PO BID KENISHA Last Admin: 12/13/19 09:00 Dose: 500 mg Documented by: Ondansetron HCl (Zofran) 4 mg IV Q8H PRN PRN Reason: Nausea And Vomiting Paliperidone (Invega) 3 mg PO DAILY [facility] Pantoprazole Sodium (Protonix) 40 mg IV BID [facility] Last Admin: 12/13/19 09:45 Dose: 40 mg Documented by: Sodium Chloride (Sodium Chloride Flush Syringe 10 Ml) 10 ml IV BID [facility] Last Admin: 12/13/19 09:46 Dose: 10 ml Documented by: Sodium Chloride (Sodium Chloride Flush Syringe 10 Ml) 10 ml IV PRN PRN PRN Reason: LINE FLUSH Review of Systems - Review of Systems All systems: negative (10 systems reviewed and negative except as mentioned above in history present illness) Exam - Constitutional Vital Signs: Temp Pulse Resp BP Pulse Ox 98.5 F 97 H 18 118/75 98 12/13/19 12:01 12/13/19 12:01 12/13/19 12:01 12/13/19 12:01 12/13/19 12:01 General appearance: no acute distress - EENT Eyes: other (no scleral icterus) ENT: hearing intact - Neck Neck: supple - Respiratory Respiratory effort: normal - Cardiovascular Rhythm: regular - Gastrointestinal General gastrointestinal: Present: soft, non-tender - Integumentary Integumentary: Present: dry - Neurologic Neurological: alert and oriented x3 - Psychiatric Psychiatric: appropriate mood/affect - Labs CBC & Chem 7: 12/13/19 03:48 12/13/19 03:48 Lab Results: Laboratory Results - last 24 hr 12/12/19 12/12/19 12/12/19 16:07 16:07 16:07 WBC 5.3 RBC 3.80 Hgb 13.4 Hct 39.9 MCV 105 H MCH 35 H MCHC 34 RDW 14.3 Plt Count 220 Lymph % (Auto) 21.5 Sutton % (Auto) 9.1 H Eos % (Auto) 1.7 Baso % (Auto) 1.2 Lymph # 1.1 L Sutton # 0.5 Eos # 0.1 Baso # 0.1 Seg Neutrophils % 66.5 Seg Neutrophils # 3.5 PT 13.1 INR 0.98 APTT 41.1 H Sodium 140 Potassium 3.8 Chloride 104.4 Carbon Dioxide 20 L Anion Gap 19 BUN 7 Creatinine 0.9 Estimated GFR > 60 BUN/Creatinine Ratio 8 Glucose 141 H Calcium 9.4 12/13/19 12/13/19 03:48 03:48 WBC 5.4 RBC 3.49 L Hgb 12.4 Hct 37.2 MCV 107 H MCH 36 H MCHC 33 RDW 14.8 Plt Count 186 Lymph % (Auto) 20.1 Sutton % (Auto) 10.0 H Eos % (Auto) 2.5 Baso % (Auto) 1.9 H Lymph # 1.1 L Sutton # 0.5 Eos # 0.1 Baso # 0.1 Seg Neutrophils % 65.5 Seg Neutrophils # 3.5 PT INR APTT Sodium 142 Potassium 3.7 Chloride 107.3 H Carbon Dioxide 21 L Anion Gap 17 BUN 5 L Creatinine 0.9 Estimated GFR > 60 BUN/Creatinine Ratio 6 Glucose 104 H Calcium 8.7 Assessment and Plan Differential diagnosis includes diverticular bleed, hemorrhoids, polyp, AVM, etc. Given amount of blood described as well as the declining hemoglobin on repeat CBC will proceed with colonoscopy for diagnosis/therapy of the rectal bleeding Final recommendations based upon colonoscopy results - Patient Problems (1) Gastrointestinal hemorrhage Current Visit: Yes Status: Acute Qualifiers: GI bleed type/associated pathology: diverticulosis Qualified Code(s): K57.91 - Diverticulosis of intestine, part unspecified, without perforation or abscess with bleeding (2) Lower GI bleed Current Visit: Yes Status: Acute
[2019-12-13] MEDS ORDERED: propofoL 200 MG/20 ML VIAL IV ONE ×2 (14:25)
--- NOTE | 2019-12-13 14:41 | Operative Report ---
Operative Report Operative Report: DOS: 12/13/19 SURGEON: Shaun Montoya MD Flexible Sigmoidoscopy REPORT PREOPERATIVE AND POSTOPERATIVE DIAGNOSIS: GI Bleed DESCRIPTION OF PROCEDURE: The colonoscope was passed to the sigmoid colon. Scope was carefully withdrawn. Retroflexion was performed in the rectum. At the end of procedure, the scope was cleaned using normal technique. Vital signs monitored continuously throughout. SEDATION: Provided by [facility]. Quality of the prep was poor COMPLICATIONS: None. ESTIMATED BLOOD LOSS: none FINDINGS: * Solid stool was found in the rectum and sigmoid colon preventing advancement of the scope beyond the sigmoid colon. Some parts of the stool did appear to have dark red blood mixed into it concerning for possible proximal source of GI bleeding RECOMMENDATIONS: * Reprep patient for colonoscopy tomorrow
--- NOTE | 2019-12-13 15:46 | Post Anesthesia Evaluation ---
- Post Anesthesia Evaluation Patient Participated: Yes Airway Patent: Yes Stable Respiratory Function: Yes Nausea/Vomiting: No Temp > 96.8F: Yes Pain Manageable: Yes Adequeate Hydration: Yes Anesthesia Complications: No
[2019-12-13] MEDS: POLYETHYLENE GLYCOL/ELECT SOLN 4000 ML PO SCH ×2 (16:10→16:12)
[2019-12-13] MEDS: PALIPERIDONE ER 3 MG TAB PO SCH (16:11)
--- NOTE | 2019-12-13 19:51 | Progress Note ---
Assessment and Plan Assessment and plan: --Lower gastrointestinal hemorrhage Current Visit: Yes Status: Acute rectal bleeding, GI evaluated s/p colonoscopy, incomplete due to poor preparation GI recommend GoLYTELY, repeat colonoscopy tomorrow N.p.o. from midnight Monitor H&H transfuse as needed --Down's syndrome Current Visit: No Status: chronic supportive care --GERD (gastroesophageal reflux disease) Current Visit: No Status: Acute PPI therapy, supportive care. -- Nicotine dependence Current Visit: Yes Status: Acute smoking cessation counseling, nicotine patch as needed --h/o Schizophrenia Current Visit: Yes Status: Acute Continue current therapy, outpatient psychiatry follow-up. -- Seizure disorder Current Visit: Yes Status: Acute Seizure precautions ,continue antiepileptic therapy -- DVT prophylaxis Current Visit: No Status: Acute SCD no pharmacologic anticoagulation in view of GI bleeding Follow clinically and adjust the management as needed Disposition; follow colonoscopy, if negative and patient stable May be discharged tomorrow History Interval history: 44-year-old female patient with Down syndrome was admitted through emergency room with rectal bleeding Patient was evaluated by GI, underwent colonoscopy which was not completed due to poor preparation. Patient was sent back to the floor, advised GoLYTELY and repeat colonoscopy tomorrow. Patient is in mild distress, minimally communicative Vital signs noted Hospitalist Physical - Constitutional Vitals: Temp Pulse Resp BP Pulse Ox 97.9 F 76 18 146/84 95 12/13/19 15:39 12/13/19 15:39 12/13/19 15:39 12/13/19 15:39 12/13/19 17:08 General appearance: Present: mild distress, well-nourished - EENT Eyes: Present: PERRL, EOM intact - Neck Neck: Present: supple, normal ROM - Respiratory Respiratory effort: normal Respiratory: bilateral: diminished, negative: rales, rhonchi, wheezing - Cardiovascular Rhythm: regular Heart Sounds: Present: S1 & S2 - Extremities Extremities: no ischemia, No edema - Abdominal General gastrointestinal: soft, non-tender, non-distended, normal bowel sounds - Integumentary Integumentary: Present: clear, warm - Psychiatric Psychiatric: other (Confused) - Neurologic Neurologic: moves all extremities Results - Labs CBC & Chem 7: 12/13/19 03:48 12/13/19 03:48 Labs: Laboratory Last Values WBC 5.4 K/mm3 (4.5-11.0) 12/13/19 03:48 RBC 3.49 M/mm3 (3.65-5.03) L 12/13/19 03:48 Hgb 12.4 gm/dl (10.1-14.3) 12/13/19 03:48 Hct 37.2 % (30.3-42.9) 12/13/19 03:48 MCV 107 fl (79-97) H 12/13/19 03:48 MCH 36 pg (28-32) H 12/13/19 03:48 MCHC 33 % (30-34) 12/13/19 03:48 RDW 14.8 % (13.2-15.2) 12/13/19 03:48 Plt Count 186 K/mm3 (140-440) 12/13/19 03:48 Lymph % (Auto) 20.1 % (13.4-35.0) 12/13/19 03:48 Bartholomew % (Auto) 10.0 % (0.0-7.3) H 12/13/19 03:48 Eos % (Auto) 2.5 % (0.0-4.3) 12/13/19 03:48 Baso % (Auto) 1.9 % (0.0-1.8) H 12/13/19 03:48 Lymph # 1.1 K/mm3 (1.2-5.4) L 12/13/19 03:48 Bartholomew # 0.5 K/mm3 (0.0-0.8) 12/13/19 03:48 Eos # 0.1 K/mm3 (0.0-0.4) 12/13/19 03:48 Baso # 0.1 K/mm3 (0.0-0.1) 12/13/19 03:48 Seg Neutrophils % 65.5 % (40.0-70.0) 12/13/19 03:48 Seg Neutrophils # 3.5 K/mm3 (1.8-7.7) 12/13/19 03:48 PT 13.1 Sec. (12.2-14.9) 12/12/19 16:07 INR 0.98 (0.87-1.13) 12/12/19 16:07 APTT 41.1 Sec. (24.2-36.6) H 12/12/19 16:07 Sodium 142 mmol/L (137-145) 12/13/19 03:48 Potassium 3.7 mmol/L (3.6-5.0) 12/13/19 03:48 Chloride 107.3 mmol/L (98-107) H 12/13/19 03:48 Carbon Dioxide 21 mmol/L (22-30) L 12/13/19 03:48 Anion Gap 17 mmol/L 12/13/19 03:48 BUN 5 mg/dL (7-17) L 12/13/19 03:48 Creatinine 0.9 mg/dL (0.7-1.2) 12/13/19 03:48 Estimated GFR > 60 ml/min 12/13/19 03:48 BUN/Creatinine Ratio 6 % 12/13/19 03:48 Glucose 104 mg/dL (65-100) H 12/13/19 03:48 Calcium 8.7 mg/dL (8.4-10.2) 12/13/19 03:48 Benitez/IV: Voiding Method Toilet IV Catheter Type [Right Peripheral IV Antecubital] Active Medications - Current Medications Current Medications: Generic Name Dose Route Start Last Admin Trade Name Freq PRN Reason Stop Dose Admin Acetaminophen 650 mg 12/12/19 19:31 Tylenol PO Q4H PRN Pain MILD(1-3)/Fever >100.5/GUY Sodium Chloride 1,000 mls @ 50 mls/hr 12/13/19 11:00 12/13/19 16:10 Nacl 0.9% 1000 Ml IV 50 mls/hr DIRECT KENISHA Administration Levetiracetam 500 mg 12/12/19 22:00 12/13/19 09:00 Keppra PO 500 mg BID KENISHA Administration Ondansetron HCl 4 mg 12/12/19 19:31 Zofran IV Q8H PRN Nausea And Vomiting Paliperidone 3 mg 12/13/19 10:00 12/13/19 16:11 Invega PO 3 mg DAILY KENISHA Administration Pantoprazole Sodium 40 mg 12/12/19 22:00 12/13/19 09:45 Protonix IV 40 mg BID KENISHA Administration Polyethylene Glycol/Electrolytes 4,000 ml 12/13/19 14:38 12/13/19 16:12 Golytely PO 12/13/19 23:59 4,000 ml ONCE KENISHA Administration Sodium Chloride 10 ml 12/12/19 22:00 12/13/19 09:46 Sodium Chloride Flush Syringe 10 Ml IV 10 ml BID KENISHA Administration Sodium Chloride 10 ml 12/12/19 19:31 Sodium Chloride Flush Syringe 10 Ml IV PRN PRN LINE FLUSH
[2019-12-14] MEDS: PANTOPRAZOLE 40 MG INJ IV SCH (11:07)
[2019-12-14 12:04] VITALS: BP 98/76
--- NOTE | 2019-12-14 13:20 | Discharge Summary ---
Providers - Providers Date of Admission: 12/12/19 19:31 Attending physician: STEPHIE TEAGUE 12/12/19 19:23 Consult to Physician [CONS] Urgent Comment: Dr. Courtney spoke with Dr. Finley @ [id number] Consulting Provider: CRISTOBAL FINLEY Physician Instructions: Reason For Exam: GI bleeding diverticular dz [facility] Condition: Stable Procedures: Colonoscopy Hospital course: 44 YO Female with Seizure Disorder, HTN, GERD, Bipolar, Depression, Schizophrenia, Nicotine Dependence, Downs Syndrome presented to ED for evaluation. Pt seen and evaluated in ED. lab and imaging studies reviewed. Patient was found to be Hemoccult positive, CT scan of the abdomen and pelvis revealed diverticulosis. Patient was found to have evidence of GI bleed suspected secondary to diverticulosis. Pt admitted to telemetry and initiated on GI bleed protocol due to increased risk of decompensation and worsening of the gastrointestinal hemorrhage. Patient convalesced well during hospital course. Without significant gastrointestinal bleed. Patient hemoglobin remained stable. Patient underwent colonoscopy. Patient however had an adequate preparation. Patient medically optimized postoperatively. Patient did not experience recurrent gastrointestinal bleeding. Patient seen and evaluated prior to discharge. No significant new physical exam findings. Patient subsequently discharged home. Patient instructed to follow-up with gastroenterology service for outpatient elective colonoscopy. Patient and instructed to resume prehospital medications and continue current care. 35 minutes dedicated to patient discharge. Disposition: TO HOME OR SELFCARE - Discharge Diagnoses (1) Gastrointestinal hemorrhage Status: Acute Qualifiers: GI bleed type/associated pathology: diverticulosis Qualified Code(s): K57.91 - Diverticulosis of intestine, part unspecified, without perforation or abscess with bleeding (2) Down's syndrome Status: Acute (3) GERD (gastroesophageal reflux disease) Status: Acute Qualifiers: Esophagitis presence: without esophagitis Qualified Code(s): K21.9 - Gastro-esophageal reflux disease without esophagitis (4) Nicotine dependence Status: Acute Qualifiers: Substance use status: in withdrawal (5) Schizophrenia Status: Acute Qualifiers: Schizophrenia type: unspecified Qualified Code(s): F20.9 - Schizophrenia, unspecified (6) Seizure disorder Status: Acute (7) DVT prophylaxis Status: Acute Core Measure Documentation - Palliative Care Palliative Care/ Comfort Measures: Not Applicable - Core Measures Any of the following diagnoses?: none Exam - Constitutional Vitals: Temp Pulse Resp BP Pulse Ox 97.5 F L 94 H 20 98/76 98 12/14/19 11:58 12/14/19 12:00 12/14/19 11:58 12/14/19 11:58 12/14/19 11:58 General appearance: Present: no acute distress, well-nourished - EENT Eyes: Present: PERRL ENT: hearing intact, clear oral mucosa - Neck Neck: Present: supple, normal ROM - Respiratory Respiratory effort: normal Respiratory: bilateral: CTA - Cardiovascular Heart Sounds: Present: S1 & S2. Absent: rub, click - Extremities Extremities: pulses symmetrical, No edema Peripheral Pulses: within normal limits - Abdominal General gastrointestinal: Present: soft, non-tender, non-distended, normal bowel sounds Female genitourinary: Present: normal - Integumentary Integumentary: Present: clear, warm, dry - Musculoskeletal Musculoskeletal: generalized weakness - Psychiatric Psychiatric: appropriate mood/affect, intact judgment & insight - Neurologic Neurologic: CNII-XII intact Plan Activity: advance as tolerated Follow up with: SHRADDHA FELICIANO MD [Primary Care Provider] - 3-5 Days Forms: Discharge Signature Page
[2019-12-14] MEDS: levETIRAcetam 500 MG TAB PO SCH (14:27)
[2019-12-14] MEDS: PALIPERIDONE ER 3 MG TAB PO SCH (14:27)
== END 2019-12-14 14:47 | disposition home or self-care (01) ==
LOC: ED 15:32 → 4A 19:31 → INTOOBSV 19:31
PROVIDERS: ADMIT Internal Medicine; ATTEND Internal Medicine
DX: K62.5 Hemorrhage of anus and rectum (principal); K57.91 Diverticulosis of intestine, part unspecified, without perforation or abscess with bleeding; K21.9 Gastro-esophageal reflux disease without esophagitis; Q90.9 Down syndrome, unspecified; F20.9 Schizophrenia, unspecified; I10 Essential (primary) hypertension; F31.9 Bipolar disorder, unspecified; G40.909 Epilepsy, unspecified, not intractable, without status epilepticus; F17.209 Nicotine dependence, unspecified, with unspecified nicotine-induced disorders; Z79.899 Other long term (current) drug therapy; Z88.5 Allergy status to narcotic agent; Z88.8 Allergy status to other drugs, medicaments and biological substances
CPT/HCPCS: 36415; 45330; 74177; 80048; 85025; 85610; 85730; 96372; 96374; 96375; 96376; 99285; C9113; G0378; J0500; J2060; J2704; J7030; Q9967

== ENCOUNTER 2020-01-24 12:14 | Emergency (ER) | payer MEDICARE ==
[2020-01-24] MEDS ORDERED: levETIRAcetam 1000 MG/NS 0.75% 1,000 MG/100 ML BAG IV ONE (12:41)
[2020-01-24] MEDS ORDERED: diphenhydrAMINE 50 MG/ML VIAL IV ONE (12:41)
[2020-01-24] MEDS ORDERED: diazePAM 10 MG/2 ML SYRINGE IV ONE (12:41)
[2020-01-24] MEDS ORDERED: SODIUM CHLORIDE 0.9% 500 ML 500 ML IV ONE (12:41)
--- NOTE | 2020-01-24 12:44 | Emergency Department Report ---
ED General Adult HPI - General Chief complaint: Seizure Stated complaint: SEIZURE PUI?: No Time Seen by Provider: 01/24/20 12:26 Source: patient, RN notes reviewed, old records reviewed Mode of arrival: Wheelchair Limitations: Other (Patient initially a poor historian) - History of Present Illness Initial comments: Patient is a 44-year-old female. She has a history of bipolar and depression. It appears that she also has a history of Down syndrome. She was brought to the hospital today because of nonspecific convulsive act ivity, trembling of body, and eyes rolling into the back of her head. Her glucose was within normal limits. Upon my initial evaluation, the patient was awake, and trembling nonspecifically. Her nonspecific trembling was terminated with Valium, and Keppra, as well as diphenhydramine. The patient is now awake and alert. She denies physical pain. She denies headache, neck pain, chest pain, abdominal pain, shortness of breath and urinary symptoms. She is not homicidal or suicidal. At the moment, she denies acute complaints. -: unknown Improves with: none Worsens with: none Associated Symptoms: denies other symptoms - Related Data Home Medications Medication Instructions Recorded Confirmed Last Taken Paliperidone [Invega] 3 mg PO DAILY 03/08/17 12/13/19 06/17/18 Benztropine Mesylate 1 mg PO QHS 12/13/19 12/13/19 Unknown Valbenazine Tosylate (Nf) 80 mg PO DAILY 12/13/19 12/13/19 Unknown [Ingrezza (Nf)] hydrOXYzine PAMOATE [Vistaril] 50 mg PO TID 12/13/19 12/13/19 Unknown Previous Rx's Medication Instructions Recorded Last Taken Type levETIRAcetam [Keppra] 500 mg PO BID #90 tablet 06/17/18 12/12/19 Rx levETIRAcetam [Keppra TAB] 500 mg PO BID #60 tablet 01/24/20 Unknown Rx Allergies Allergy/AdvReac Type Severity Reaction Status Date / Time acetaminophen [From Vicodin] Allergy Anaphylaxis Verified 01/24/20 12:14 codeine Allergy Anaphylaxis Verified 01/24/20 12:14 hydrocodone bitartrate Allergy Anaphylaxis Verified 01/24/20 12:14 [From Vicodin] ED Review of Systems ROS: Stated complaint: SEIZURE Other details as noted in HPI Comment: Patient is a poor historian Constitutional: denies: fever Cardiovascular: denies: chest pain Gastrointestinal: denies: abdominal pain Psychiatric: denies: homicidal thoughts, suicidal thoughts ED Past Medical Hx - Past Medical History Hx Hypertension: No Hx Congestive Heart Failure: No Hx Diabetes: No Hx Deep Vein Thrombosis: No Hx GERD: Yes Hx Liver Disease: No Hx Renal Disease: No Hx Sickle Cell Disease: No Hx Seizures: Yes (report of seizure-like activity since admission. Keppra given.) Hx Psychiatric Treatment: Yes (BIPOLAR / DEPRESSION) Hx Asthma: No Hx COPD: No Hx HIV: No Additional medical history: Congenital heart murmur, Downs Syndrome - Surgical History Additional Surgical History: Hernia repair x 2 - Social History Smoking Status: Unknown if ever smoked - Medications Home Medications: Home Medications Medication Instructions Recorded Confirmed Last Taken Type Paliperidone [Invega] 3 mg PO DAILY 03/08/17 12/13/19 06/17/18 History levETIRAcetam [Keppra] 500 mg PO BID #90 tablet 06/17/18 12/13/19 12/12/19 Rx Benztropine Mesylate 1 mg PO QHS 12/13/19 12/13/19 Unknown History Valbenazine Tosylate (Nf) 80 mg PO DAILY 12/13/19 12/13/19 Unknown History [Ingrezza (Nf)] hydrOXYzine PAMOATE [Vistaril] 50 mg PO TID 12/13/19 12/13/19 Unknown History levETIRAcetam [Keppra TAB] 500 mg PO BID #60 tablet 01/24/20 Unknown Rx ED Physical Exam - General Limitations: Other (Disorganized behavior) General appearance: other (Patient initially awake, and trembling. Now, she is alert, and following commands and speaking in full sentences) - Head Head exam: Present: atraumatic, normocephalic - Eye Eye exam: Present: normal appearance, PERRL, EOMI, other (Visual acuity intact to finger counting, color perception, reading at a close distance). Absent: nystagmus - ENT ENT exam: Present: normal exam, normal orophraynx, mucous membranes moist, normal external ear exam - Neck Neck exam: Present: normal inspection, full ROM. Absent: tenderness, meningismus - Respiratory Respiratory exam: Present: normal lung sounds bilaterally. Absent: respiratory distress, wheezes, rales, rhonchi, stridor - Cardiovascular Cardiovascular Exam: Present: normal rhythm, tachycardia, normal heart sounds. Absent: systolic murmur, diastolic murmur, rubs, gallop - GI/Abdominal GI/Abdominal exam: Present: soft. Absent: distended, tenderness, guarding, rebound, rigid, pulsatile mass - Extremities Exam Extremities exam: Present: normal inspection, full ROM, other (2+ pulses noted in the bilateral upper and lower extremities. There is no palpable cord. negative Homans sign. Muscular compartments are soft. The pelvis is stable.). Absent: pedal edema, calf tenderness - Back Exam Back exam: Present: normal inspection, full ROM. Absent: tenderness, CVA tenderness (R), CVA tenderness (L), paraspinal tenderness, vertebral tenderness - Neurological Exam Neurological exam: Present: other (No facial droop. Tongue midline. Extraocular movements intact bilaterally. Facial sensation intact to light touch in V1, V2, V3 distribution bilaterally. 5 and a 5 strength in 4 extremities. Sensation intact to light touch in 4 extremities.) - Psychiatric Psychiatric exam: Present: flat affect. Absent: homicidal ideation, suicidal ideation - Skin Skin exam: Present: warm, dry, intact, normal color. Absent: rash ED Course Vital Signs 01/24/20 01/24/20 01/24/20 12:19 12:27 12:30 Temperature 98.8 F Pulse Rate 112 H 118 H Respiratory 20 23 27 H Rate Blood Pressure 129/83 138/95 O2 Sat by Pulse 98 97 Oximetry 01/24/20 01/24/20 01/24/20 13:30 13:46 13:48 Temperature 98.7 F Pulse Rate 83 82 Respiratory 15 14 Rate Blood Pressure 134/62 134/62 O2 Sat by Pulse 99 99 Oximetry - Reevaluation(s) Reevaluation #1: 01/24/20 14:18 Differential diagnosis, including but not limited to: Seizure, psychogenic seizure, pneumonia, urinary tract infection, electrolyte derangement, conversion disorder, intracranial mass lesion Assessment and plan: 44-year-old female with psychiatric history, presenting with nonspecific convulsions while awake. Her episode was terminated with Keppra, Valium, and Benadryl. The patient is now awake and alert, following commands, and in no acute distress. She is not homicidal suicidal. She denies physical pain at this time, is speaking in complete sentences, and moving 4 extremities without difficulty. She does not meet criteria for 1013 hold for acute psychosis at this time. An x-ray of the chest was unremarkable for acute findings to my interpretation. Noncontrast CT scan of the brain is pending. There is no history of trauma, and there is no midline cervical spine tenderness, pain or step-offs. Reevaluation #2: 01/24/20 15:23 Patient awake and alert, walking with a steady gait. Endorses no pain at this time. Resting comfortably and in no acute distress. Objective imaging pending interpretation at this time Reevaluation #3: 01/24/20 15:58 No further events noted. Resting comfortably, and in no acute distress. Objective imaging studies unremarkable as expected. We will discharge at this time ED Medical Decision Making - Lab Data Result diagrams: 01/24/20 12:56 01/24/20 12:56 Vital Signs 01/24/20 01/24/20 01/24/20 12:19 12:27 12:30 Temperature 98.8 F Pulse Rate 112 H 118 H Respiratory 20 23 27 H Rate Blood Pressure 129/83 138/95 O2 Sat by Pulse 98 97 Oximetry 01/24/20 01/24/20 01/24/20 13:30 13:46 13:48 Temperature 98.7 F Pulse Rate 83 82 Respiratory 15 14 Rate Blood Pressure 134/62 134/62 O2 Sat by Pulse 99 99 Oximetry Lab Results 01/24/20 01/24/20 01/24/20 Range/Units 12:56 12:56 12:56 Hgb 13.4 (10.1-14.3) gm/dl Hct 39.7 (30.3-42.9) % Plt Count 165 (140-440) K/mm3 PT (12.2-14.9) Sec. INR (0.87-1.13) Sodium 141 (137-145) mmol/L Potassium 4.0 (3.6-5.0) mmol/L Chloride 107.0 (98-107) mmol/L Carbon Dioxide 22 (22-30) mmol/L Anion Gap 16 mmol/L BUN 6 L (7-17) mg/dL Creatinine 0.6 L (0.7-1.2) mg/dL Estimated GFR > 60 ml/min BUN/Creatinine Ratio 10 % Glucose 108 H (65-100) mg/dL Calcium 8.6 (8.4-10.2) mg/dL Magnesium 1.80 (1.7-2.3) mg/dL Total Bilirubin 0.40 (0.1-1.2) mg/dL AST 14 (5-40) units/L ALT 7 (7-56) units/L Alkaline Phosphatase 64 (35-129) units/L Total Creatine Kinase 114 (30-135) units/L Total Protein 7.4 (6.3-8.2) g/dL Albumin 4.3 (3.9-5) g/dL Albumin/Globulin Ratio 1.4 % TSH 0.468 (0.270-4.200) mlU/mL HCG, Quant (0-4) mIU/mL Urine Color (Yellow) Urine Turbidity (Clear) Urine pH (5.0-7.0) Ur Specific Morrow (1.003-1.030) Urine Protein (Negative) mg/dL Urine Glucose (UA) (Negative) mg/dL Urine Ketones (Negative) mg/dL Urine Blood (Negative) Urine Nitrite (Negative) Urine Bilirubin (Negative) Urine Urobilinogen (<2.0) mg/dL Ur Leukocyte Esterase (Negative) Urine WBC (Auto) (0.0-6.0) /HPF Urine RBC (Auto) (0.0-6.0) /HPF U Epithel Cells (Auto) (0-13.0) /HPF Urine Mucus /HPF Salicylates (2.8-20.0) mg/dL Acetaminophen (10.0-30.0) ug/mL Plasma/Serum Alcohol (0-0.07) % 01/24/20 01/24/20 01/24/20 Range/Units 12:56 12:56 12:56 Hgb (10.1-14.3) gm/dl Hct (30.3-42.9) % Plt Count (140-440) K/mm3 PT (12.2-14.9) Sec. INR (0.87-1.13) Sodium (137-145) mmol/L Potassium (3.6-5.0) mmol/L Chloride (98-107) mmol/L Carbon Dioxide (22-30) mmol/L Anion Gap mmol/L BUN (7-17) mg/dL Creatinine (0.7-1.2) mg/dL Estimated GFR ml/min BUN/Creatinine Ratio % Glucose (65-100) mg/dL Calcium (8.4-10.2) mg/dL Magnesium (1.7-2.3) mg/dL Total Bilirubin (0.1-1.2) mg/dL AST (5-40) units/L ALT (7-56) units/L Alkaline Phosphatase (35-129) units/L Total Creatine Kinase (30-135) units/L Total Protein (6.3-8.2) g/dL Albumin (3.9-5) g/dL Albumin/Globulin Ratio % TSH (0.270-4.200) mlU/mL HCG, Quant (0-4) mIU/mL Urine Color (Yellow) Urine Turbidity (Clear) Urine pH (5.0-7.0) Ur Specific Morrow (1.003-1.030) Urine Protein (Negative) mg/dL Urine Glucose (UA) (Negative) mg/dL Urine Ketones (Negative) mg/dL Urine Blood (Negative) Urine Nitrite (Negative) Urine Bilirubin (Negative) Urine Urobilinogen (<2.0) mg/dL Ur Leukocyte Esterase (Negative) Urine WBC (Auto) (0.0-6.0) /HPF Urine RBC (Auto) (0.0-6.0) /HPF U Epithel Cells (Auto) (0-13.0) /HPF Urine Mucus /HPF Salicylates < 0.3 L (2.8-20.0) mg/dL Acetaminophen < 5.0 L (10.0-30.0) ug/mL Plasma/Serum Alcohol < 0.01 (0-0.07) % 01/24/20 01/24/20 01/24/20 Range/Units 12:56 12:56 13:48 Hgb (10.1-14.3) gm/dl Hct (30.3-42.9) % Plt Count (140-440) K/mm3 PT 12.9 (12.2-14.9) Sec. INR 0.96 (0.87-1.13) Sodium (137-145) mmol/L Potassium (3.6-5.0) mmol/L Chloride (98-107) mmol/L Carbon Dioxide (22-30) mmol/L Anion Gap mmol/L BUN (7-17) mg/dL Creatinine (0.7-1.2) mg/dL Estimated GFR ml/min BUN/Creatinine Ratio % Glucose (65-100) mg/dL Calcium (8.4-10.2) mg/dL Magnesium (1.7-2.3) mg/dL Total Bilirubin (0.1-1.2) mg/dL AST (5-40) units/L ALT (7-56) units/L Alkaline Phosphatase (35-129) units/L Total Creatine Kinase (30-135) units/L Total Protein (6.3-8.2) g/dL Albumin (3.9-5) g/dL Albumin/Globulin Ratio % TSH (0.270-4.200) mlU/mL HCG, Quant < 2 (0-4) mIU/mL Urine Color Yellow (Yellow) Urine Turbidity Clear (Clear) Urine pH 6.0 (5.0-7.0) Ur Specific Morrow 1.013 (1.003-1.030) Urine Protein <15 mg/dl (Negative) mg/dL Urine Glucose (UA) Neg (Negative) mg/dL Urine Ketones Neg (Negative) mg/dL Urine Blood Neg (Negative) Urine Nitrite Neg (Negative) Urine Bilirubin Neg (Negative) Urine Urobilinogen < 2.0 (<2.0) mg/dL Ur Leukocyte Esterase Neg (Negative) Urine WBC (Auto) < 1.0 (0.0-6.0) /HPF Urine RBC (Auto) 1.0 (0.0-6.0) /HPF U Epithel Cells (Auto) 3.0 (0-13.0) /HPF Urine Mucus Few /HPF Salicylates (2.8-20.0) mg/dL Acetaminophen (10.0-30.0) ug/mL Plasma/Serum Alcohol (0-0.07) % - EKG Data -: EKG Interpreted by Ca EKG shows normal: sinus rhythm Rate: normal - EKG Data 01/24/20 14:20 EKG today shows motion artifact, sinus rhythm, there is a borderline rightward axis deviation, motion artifact, and poor R wave progression. This EKG is abnormal. The EKG is not a STEMI. Nonspecific changes when compared to prior EKG. - Radiology Data Radiology results: pending, report reviewed, image reviewed interpreted by me: X-ray of the chest, interpreted by myself, negative for acute disease, scoliosis is noted. Print Report Referring Physician: BOBBY BARTHOLOMEW Patient Name: NANCY CANALES Date of : 1975 Sex: Female Report Date: 2020-01-24 Report Status: [place] [address] Cat Scan Report Signed Patient: NANCY CANALES MR#: [id number] : 1975 Acct:[id number] Age/Sex: 44 / F ADM Date: 01/24/20 Loc: ED Attending Dr: Ordering Physician: BOBBY BARTHOLOMEW MD Date of Service: 01/24/20 Procedure(s): CT head/brain wo con Accession Number(s): [id number] cc: BOBBY BARTHOLOMEW MD NONENHANCED CT SCAN OF THE HEAD: INDICATION / CLINICAL INFORMATION: 44 years Female; tachycardia sz vs convulsion, ams. TECHNIQUE: Routine CT head without contrast. All CT scans at this location are performed using CT dose reduction for ALARA by means of automated exposure control. COMPARISON: CT scan of the head from 02/08/2019 FINDINGS: BRAIN / INTRACRANIAL CONTENTS: No acute h emorrhage, mass effect, midline shift, hydrocephalus, or acute, large territorial infarct. No chronic infarct or focal atrophy. Normal brain volume and ventricular/sulcal size for age. No significant white matter abnormality. CRANIOCERVICAL JUNCTION: No significant abnormality. ORBITS: Elongated stacie earance of both ocular bulbs remain unchanged resulting in shortening of olfactory nerve sheath complex. This remains unchanged. SINUSES / MASTOIDS: No significant abnormality of the visualized paranasal sinuses or mastoid air cells. ADDITIONAL FINDINGS: Symmetric enhancement seen in the basal ganglia bilaterally. This remains unchanged since the last CT scan. IMPRESSION: No acute parenchymal lesion in the brain Signer Name: Ernie Kaur MD Signed: 01/24/2020 3:28 PM Workstation Name: [id number] Transcribed By: BS Dictated By: Ernie Blas MD Electronically Authenticated By: Ernie Blas MD Signed Date/Time: 01/24/20 1528 Print Report Referring Physician: BOBBY BARTHOLOMEW Patient Name: NANCY CANALES Date of : 1975 Sex: Female Report Date: 2020-01-24 Report Status: Finalized Findings [facility] [address] [place] [address] XRay Report Signed Patient: NANCY CANALES MR#: [id number] : 1975 Acct:[id number] Age/Sex: 44 / F ADM Date: 01/24/20 Loc: ED Attending Dr: Ordering Physician: BOBBY BARTHOLOMEW MD Date of Service: 01/24/20 Procedure(s): XR chest 1V ap Accession Number(s): [id number] cc: BOBBY BARTHOLOMEW MD Fluoro Time In Minutes: CHEST 1 VIEW 1:54 PM INDICATION / CLINICAL INFORMATION: Tachycardia. Convulsion. COMPARISON: None available. FINDINGS: SUPPORT DEVICES: None. HEART / MEDIASTINUM: The heart size and pulmonary vasculature are normal. The aorta is normal in caliber. LUNGS / PLEURA: No significant pulmonary or pleural abnormality. No pneumothorax. ADDITIONAL FINDINGS: There is moderate thoracolumbar scoliosis. IMPRESSION: No acute findings. Signer Name: Julio Hodge MD Signed: 01/24/2020 3:31 PM Workstation Name: [id number] Transcribed By: RT Dictated By: Julio Hodge MD Electronically Authenticated By: Julio Hodge MD Signed Date/Time: 01/24/20 1531 Critical care attestation.: If time is entered above; I have spent that time in minutes in the direct care of this critically ill patient, excluding procedure time. ED Disposition Clinical Impression: Schizophrenia Qualifiers: Schizophrenia type: unspecified Qualified Code(s): F20.9 - Schizophrenia, unspecified Convulsions Qualifiers: Convulsion type: unspecified Qualified Code(s): R56.9 - Unspecified convulsions Disposition: DC-01 TO HOME OR SELFCARE Is pt being admited?: No Does the pt Need Aspirin: No Condition: Stable Additional Instructions: Do not drive or operate motor vehicles for the next 6 months, or until cleared to do so by a primary care doctor or neurologist. Recommend follow-up with an outpatient neurologist within the next 5 to 7 days. In addition, recommend follow-up with an outpatient primary care doctor within the next 2 weeks. In addition, patient was found to have nonspecific abnormalities in her EKG. She should follow-up with a primary care doctor or sergeant missile crewman for this within the next 2 weeks. Avoid consumption of alcohol, sedating substances, and recreational drugs. Please return to the emergency room right away with new pain, worsening pain, migration of pain, projectile vomiting, change in mental status, confusion, inability to tolerate liquid feeds. Take the seizure medication as directed; noncompliance with seizure medication may result in breakthrough seizures, which can cause , disability, paralysis, loss of quality of life. Follow-up with the neurologist within the recommended timeframe to determine long-term need for Keppra use. Prescriptions: levETIRAcetam [Keppra TAB] 500 mg PO BID #60 tablet Referrals: ENMANUEL SHIPLEY MD [Staff Physician] - 3-5 Days JORDIN MURILLO MD [Referring] - 3-5 Days JONATAN CALLES MD [Staff Physician] - 3-5 Days
[2020-01-24 13:20] LABS: Hematocrit 39.7 % (30.3-42.9); Hemoglobin 13.4 gm/dl (10.1-14.3)
[2020-01-24 13:29] LABS: INR 0.96 (0.87-1.13)
[2020-01-24 13:37] LABS: Alanine Aminotransferase 7 units/L (7-56); Albumin 4.3 g/dL (3.9-5); BUN/Creatinine Ratio 10; Blood Urea Nitrogen 6 mg/dL (7-17); Calcium 8.6 mg/dL (8.4-10.2); Hemolysis Index 13
[2020-01-24 14:06] LABS: Bilirubin,Urine NEG (Negative); Blood,Urine NEG (Negative); Color,Urine Yellow (Yellow); Mucus,Urine FEW /HPF; Protein,Urine <15 mg/dL mg/dL (Negative); Urobilinogen,Urine < 2.0 mg/dL (<2.0); WBC,Urine < 1.0 /HPF (0.0-6.0)
[2020-01-24] MEDS ORDERED: HALOPERIDOL LACTATE 5 MG/1 ML INJ IM STA (14:15)
--- NOTE | 2020-01-24 15:33 | Cat Scan Report ---
NONENHANCED CT SCAN OF THE HEAD: INDICATION / CLINICAL INFORMATION: 44 years Female; tachycardia sz vs convulsion, ams. TECHNIQUE: Routine CT head without contrast. All CT scans at this location are performed using CT dos e reduction for ALARA by means of automated exposure control. COMPARISON: CT scan of the head from 02/08/2019 FINDINGS: BRAIN / INTRACRANIAL CONTENTS: No acute hemorrhage, mass effect, midline shift, hydrocephalus, or ac creek, large territorial infarct. No chronic infarct or focal atrophy. Normal brain volume and ventricu lar/sulcal size for age. No significant white matter abnormality. CRANIOCERVICAL JUNCTION: No significant abnormality. ORBITS: Elongated appearance of both ocular bulbs remain unchanged resulting in shortening of olfacto ry nerve sheath complex. This remains unchanged. SINUSES / MASTOIDS: No significant abnormality of the visualized paranasal sinuses or mastoid air maria dolores ls. ADDITIONAL FINDINGS: Symmetric enhancement seen in the basal ganglia bilaterally. This remains unchan ged since the last CT scan. IMPRESSION: No acute parenchymal lesion in the brain Signer Name: Ernie Kaur MD Signed: 01/24/2020 3:28 PM Workstation Name: [id number]
--- NOTE | 2020-01-24 15:35 | XRay Report ---
CHEST 1 VIEW 1:54 PM INDICATION / CLINICAL INFORMATION: Tachycardia. Convulsion. COMPARISON: None available. FINDINGS: SUPPORT DEVICES: None. HEART / MEDIASTINUM: The heart size and pulmonary vasculature are normal. The aorta is normal in rosa jake. LUNGS / PLEURA: No significant pulmonary or pleural abnormality. No pneumothorax. ADDITIONAL FINDINGS: There is moderate thoracolumbar scoliosis. IMPRESSION: No acute findings. Signer Name: Julio Hodge MD Signed: 01/24/2020 3:31 PM Workstation Name: [id number]
[2020-01-24 16:40] VITALS: BP 140/77
== END 2020-01-24 16:17 | disposition home or self-care (01) ==
LOC: ED 12:14
DX: R56.9 Unspecified convulsions (principal); F20.89 Other schizophrenia; K21.9 Gastro-esophageal reflux disease without esophagitis; Q90.9 Down syndrome, unspecified; Z79.899 Other long term (current) drug therapy; Z98.890 Other specified postprocedural states; Z88.6 Allergy status to analgesic agent; Z88.4 Allergy status to anesthetic agent
CPT/HCPCS: 36415; 70450; 71045; 80053; 81001; 82550; 83735; 84443; 84702; 85014; 85018; 85049; 85610; 93005; 96372; 96374; 96375; 99285; J1200; J1630; J1953; J3360; J7040; 80320; G0480

== ENCOUNTER 2020-08-04 13:48 | Emergency (ER) | payer MEDICARE ==
[2020-08-04] MEDS ORDERED: LORazepam 2 MG/ML VIAL IM ONE (14:09)
[2020-08-04] MEDS ORDERED: ZIPRASIDONE MESYLATE 20 MG VIAL IM ONE (14:09)
--- NOTE | 2020-08-04 14:16 | Emergency Department Report ---
ED General Adult HPI - General Chief complaint: Seizure Stated complaint: SEIZURES Time Seen by Provider: 08/04/20 13:59 Source: family Mode of arrival: Ambulatory Limitations: Other - History of Present Illness Initial comments: This is a 44-year-old female that was found to be tremulous and not seizing. She followed commands but was communicating very little. She was here with a family member who states that she has been hearing voices lately. She has not been agitated. She has a history of psychiatric disorder treated with olanzapine and Ingrezza. She has been compliant with her care at the [facility]. The last emergency department record in January 2020 mentioned a "history of Down syndrome". I do not think this is accurate as she does not have Down's features. In any case, her Keppra has been recently increased according to family member. She has been having shaking movements this morning. -: hour(s) Associated Symptoms: denies other symptoms (Not per family member) - Related Data Home Medications Medication Instructions Recorded Confirmed Last Taken Paliperidone [Invega] 3 mg PO DAILY 03/08/17 12/13/19 06/17/18 Benztropine Mesylate 1 mg PO QHS 12/13/19 12/13/19 Unknown Valbenazine Tosylate (Nf) 80 mg PO DAILY 12/13/19 12/13/19 Unknown [Ingrezza (Nf)] hydrOXYzine PAMOATE [Vistaril] 50 mg PO TID 12/13/19 12/13/19 Unknown Previous Rx's Medication Instructions Recorded Last Taken Type levETIRAcetam [Keppra] 500 mg PO BID #90 tablet 06/17/18 12/12/19 Rx levETIRAcetam [Keppra TAB] 500 mg PO BID #60 tablet 01/24/20 Unknown Rx Allergies Allergy/AdvReac Type Severity Reaction Status Date / Time acetaminophen [From Vicodin] Allergy Anaphylaxis Verified 08/04/20 13:49 codeine Allergy Anaphylaxis Verified 08/04/20 13:49 hydrocodone bitartrate Allergy Anaphylaxis Verified 08/04/20 13:49 [From Vicodin] ED Review of Systems ROS: Stated complaint: SEIZURES Other details as noted in HPI Comment: Unobtainable due to pts medical conditions ED Past Medical Hx - Past Medical History Hx Hypertension: No Hx Congestive Heart Failure: No Hx Diabetes: No Hx Deep Vein Thrombosis: No Hx GERD: Yes Hx Liver Disease: No Hx Renal Disease: No Hx Sickle Cell Disease: No Hx Seizures: Yes (report of seizure-like activity since admission. Keppra given.) Hx Psychiatric Treatment: Yes (BIPOLAR / DEPRESSION) Hx Asthma: No Hx COPD: No Hx HIV: No Additional medical history: Congenital heart murmur, Downs Syndrome - Surgical History Additional Surgical History: Hernia repair x 2 - Social History Smoking Status: Unknown if ever smoked - Medications Home Medications: Home Medications Medication Instructions Recorded Confirmed Last Taken Type Paliperidone [Invega] 3 mg PO DAILY 03/08/17 12/13/19 06/17/18 History levETIRAcetam [Keppra] 500 mg PO BID #90 tablet 06/17/18 12/13/19 12/12/19 Rx Benztropine Mesylate 1 mg PO QHS 12/13/19 12/13/19 Unknown History Valbenazine Tosylate (Nf) 80 mg PO DAILY 12/13/19 12/13/19 Unknown History [Ingrezza (Nf)] hydrOXYzine PAMOATE [Vistaril] 50 mg PO TID 12/13/19 12/13/19 Unknown History levETIRAcetam [Keppra TAB] 500 mg PO BID #60 tablet 01/24/20 Unknown Rx ED Physical Exam - General Limitations: Other (Generalized tremulous behavior, not ictal, focal or otherwise) General appearance: alert - Head Head exam: Present: atraumatic, normocephalic - Eye Eye exam: Present: normal appearance. Absent: scleral icterus - ENT ENT exam: Present: mucous membranes moist - Neck Neck exam: Present: normal inspection. Absent: tenderness, meningismus - Respiratory Respiratory exam: Present: normal lung sounds bilaterally. Absent: respiratory distress - Cardiovascular Cardiovascular Exam: Present: regular rate, normal rhythm. Absent: systolic murmur, diastolic murmur, rubs, gallop - GI/Abdominal GI/Abdominal exam: Present: soft, normal bowel sounds. Absent: distended, tenderness - Extremities Exam Extremities exam: Present: normal inspection - Back Exam Back exam: Present: normal inspection - Neurological Exam Neurological exam: Present: other (No apparent focal deficit) - Psychiatric Psychiatric exam: Present: normal mood, flat affect - Skin Skin exam: Present: warm, dry, intact, normal color. Absent: rash ED Course Vital Signs 08/04/20 13:54 Temperature 98.4 F Pulse Rate 128 H Respiratory 20 Rate Blood Pressure 141/72 O2 Sat by Pulse 99 Oximetry - Reevaluation(s) Reevaluation #1: Patient responded well to medication. She is appropriate for outpatient management by her usual physicians. 08/04/20 15:35 ED Medical Decision Making - Lab Data Result diagrams: 08/04/20 14:26 08/04/20 14:26 Laboratory Results - last 24 hr 08/04/20 08/04/20 14:26 14:26 WBC 5.9 RBC 4.03 Hgb 13.0 Hct 38.7 MCV 96 MCH 32 MCHC 34 RDW 13.1 L Plt Count 183 Lymph % (Auto) 17.5 Walton % (Auto) 8.1 H Eos % (Auto) 1.0 Baso % (Auto) 0.6 Lymph # (Auto) 1.0 L Walton # (Auto) 0.5 Eos # (Auto) 0.1 Baso # (Auto) 0.0 Add Manual Diff Complete Seg Neutrophils % 72.8 H Seg Neutrophils # 4.3 Sodium 143 Potassium 3.6 Chloride 108.6 H Carbon Dioxide 24 Anion Gap 14 BUN 7 Creatinine 0.8 Estimated GFR > 60 BUN/Creatinine Ratio 9 Glucose 96 Calcium 8.6 Magnesium 1.80 Critical care attestation.: If time is entered above; I have spent that time in minutes in the direct care of this critically ill patient, excluding procedure time. ED Disposition Clinical Impression: Psychiatric disorder, Seizure disorder, Acute anxiety Disposition: DC-01 TO HOME OR SELFCARE Is pt being admited?: No Does the pt Need Aspirin: No Condition: Stable Instructions: Schizophrenia, Managing Anxiety, Adult, Epilepsy, [id number] Additional Instructions: Return any acute change or problem. Continue usual medications. [facility] [Provider Group] - 2-3 Days Time of Disposition: 15:35
[2020-08-04 15:05] LABS: Red Blood Count 4.03 M/mm3 (3.65-5.03)
[2020-08-04 15:06] LABS: Basophils % (Auto) 0.6 % (0.0-1.8); Eosinophils # (Auto) 0.1 K/mm3 (0.0-0.4); Hematocrit 38.7 % (30.3-42.9); Lymphocytes % (Auto) 17.5 % (13.4-35.0); Mean Corpuscular HGB Conc 34 % (30-34); Mean Corpuscular Volume 96 fl (79-97); Monocytes # (Auto) 0.5 K/mm3 (0.0-0.8); Monocytes % (Auto) 8.1 % (0.0-7.3); Platelet Count 183 K/mm3 (140-440); Red Cell Distribution Width 13.1 % (13.2-15.2)
[2020-08-04 15:08] LABS: BUN/Creatinine Ratio 9; Blood Urea Nitrogen 7 mg/dL (7-17); Calcium 8.6 mg/dL (8.4-10.2); Hemolysis Index 5
[2020-08-04 17:23] VITALS: BP 121/68
== END 2020-08-04 17:40 | disposition home or self-care (01) ==
LOC: ED 13:48
DX: G40.909 Epilepsy, unspecified, not intractable, without status epilepticus (principal); F41.9 Anxiety disorder, unspecified; K21.9 Gastro-esophageal reflux disease without esophagitis; F31.9 Bipolar disorder, unspecified; Z98.890 Other specified postprocedural states; Z79.899 Other long term (current) drug therapy; Z88.8 Allergy status to other drugs, medicaments and biological substances
CPT/HCPCS: 36415; 80048; 83735; 85025; 96372; 99283; J2060; J3486

== ENCOUNTER 2021-02-01 09:32 | Emergency (ER) | payer MEDICARE ==
[2021-02-01 10:59] VITALS: BP 105/62
--- NOTE | 2021-02-01 11:04 | Event Note ---
ED Screening Note ED Screening Note: tremors for two days has been out of ativan for 3 days she is currently taking valbenzine, risperidone, atenolol, keppra no movements of the mouth, no difficulty with speech, no body aches, no fever, no n/v/d This initial assessment/diagnostic orders/clinical plan/treatment(s) is/are subject to change based on patients health status, clinical progression and re- assessment by fellow clinical providers in the ED. Further treatment and workup at subsequent clinical providers discretion. Patient/guardian urged not to elope from the ED as their condition may be serious if not clinically assessed and managed. Initial orders include: labs, ua
[2021-02-01 11:49] LABS: Alanine Aminotransferase 9 units/L (7-56); Albumin 4.8 g/dL (3.9-5); BUN/Creatinine Ratio 8; Blood Urea Nitrogen 8 mg/dL (7-17); Hemolysis Index 2
[2021-02-01 11:57] LABS: Eosinophils # (Auto) 0.1 K/mm3 (0.0-0.4); Eosinophils % (Auto) 1.6 % (0.0-4.3); Hematocrit 37.9 % (30.3-42.9); Hemoglobin 12.7 gm/dl (10.1-14.3); Lymphocytes # (Auto) 1.1 K/mm3 (1.2-5.4); Lymphocytes % (Auto) 24.1 % (13.4-35.0); Mean Corpuscular HGB Conc 34 % (30-34); Mean Corpuscular Volume 97 fl (79-97); Monocytes # (Auto) 0.4 K/mm3 (0.0-0.8); Monocytes % (Auto) 8.9 % (0.0-7.3); Platelet Count 193 K/mm3 (140-440); Red Blood Count 3.93 M/mm3 (3.65-5.03); Red Cell Distribution Width 13.1 % (13.2-15.2)
[2021-02-01 12:01] LABS: Bacteria,Urine 1+ /HPF (Negative); Bilirubin,Urine NEG (Negative); Blood,Urine NEG (Negative); Color,Urine Yellow (Yellow); Mucus,Urine FEW /HPF; Protein,Urine <15 mg/dL mg/dL (Negative); Urobilinogen,Urine < 2.0 mg/dL (<2.0); WBC,Urine < 1.0 /HPF (0.0-6.0)
--- NOTE | 2021-02-01 12:33 | Emergency Department Report ---
ED General Adult HPI - General Chief complaint: Allergic Reaction Stated complaint: SHAKING, TREMBLING POSSIBLE SIDE EFFECTS FROM MEDS Time Seen by Provider: 02/01/21 10:58 Source: patient, family Mode of arrival: Ambulatory Limitations: Other - History of Present Illness Initial comments: 45-year-old female patient with history of learning disability presents to the emergency department with family member with reported complaints of tremors for 3 days. Last week, patient's physician discontinued her Hydroxyzine. She was taking 50 mg 3 times per day. She is on multiple psychotropic medications. There have been no other changes to her medication regimen. She is scheduled to follow-up with her physician on February 20. No recent fall, trauma, injury. No recent illness. Family member states patient caffeine intake has recently increased. Denies fever, chills, chest pain, shortness of breath, palpitations, syncope, seizure, ataxia, dizziness. Denies all other complaints at this time. - Related Data Home Medications Medication Instructions Recorded Confirmed Last Taken Paliperidone [Invega] 3 mg PO DAILY 03/08/17 12/13/19 06/17/18 Benztropine Mesylate 1 mg PO QHS 12/13/19 12/13/19 Unknown Valbenazine Tosylate (Nf) 80 mg PO DAILY 12/13/19 12/13/19 Unknown [Ingrezza (Nf)] hydrOXYzine PAMOATE [Vistaril] 50 mg PO TID 12/13/19 12/13/19 Unknown Previous Rx's Medication Instructions Recorded Last Taken Type levETIRAcetam [Keppra] 500 mg PO BID #90 tablet 06/17/18 12/12/19 Rx levETIRAcetam [Keppra TAB] 500 mg PO BID #60 tablet 01/24/20 Unknown Rx hydrOXYzine HCL [Atarax] 25 mg PO BID #20 tablet 02/01/21 Unknown Rx Allergies Allergy/AdvReac Type Severity Reaction Status Date / Time acetaminophen [From Vicodin] Allergy Anaphylaxis Verified 08/04/20 13:49 codeine Allergy Anaphylaxis Verified 08/04/20 13:49 hydrocodone bitartrate Allergy Anaphylaxis Verified 08/04/20 13:49 [From Vicodin] ED Review of Systems ROS: Stated complaint: SHAKING, TREMBLING POSSIBLE SIDE EFFECTS FROM MEDS Other details as noted in HPI Other: GENERAL: Negative for fever, chills, weight change, anorexia, fatigue. ENT: Negative for ear pain, difficulty hearing, sore throat, nasal congestion, epistaxis. CARDIOVASCULAR: Negative for chest pain, palpitations, lower extremity swelling. PULMONARY: Negative for cough, dyspnea, wheezing, orthopnea, cyanosis. GASTROINTESTINAL: Negative for abdominal pain, nausea, vomiting, diarrhea, constipation. MUSCULOSKELETAL: Negative for joint pain, joint swelling, myalgias, back pain, neck pain. NEUROLOGICAL: Positive for tremors. INTEGUMENTARY: Negative for erythema, rash, diaphoresis, laceration, ecchymosis. HEMATOLOGICAL: Negative for hemoptysis, hematemesis, hematochezia, hematuria. PSYCHIATRIC: Negative for hallucinations, suicidal ideation, homicidal ideation, anxiety, depression. ED Past Medical Hx - Past Medical History Previous Medical History?: Yes Hx Hypertension: No Hx Congestive Heart Failure: No Hx Diabetes: No Hx Deep Vein Thrombosis: No Hx GERD: Yes Hx Liver Disease: No Hx Renal Disease: No Hx Sickle Cell Disease: No Hx Seizures: Yes (report of seizure-like activity since admission. Keppra given.) Hx Psychiatric Treatment: Yes (BIPOLAR / DEPRESSION, PTSD) Hx Asthma: No Hx COPD: No Hx HIV: No Additional medical history: Congenital heart murmur, Downs Syndrome - Surgical History Past Surgical History?: Yes Additional Surgical History: Hernia repair x 2 - Social History Smoking Status: Current Every Day Smoker Substance Use Type: Prescribed - Medications Home Medications: Home Medications Medication Instructions Recorded Confirmed Last Taken Type Paliperidone [Invega] 3 mg PO DAILY 03/08/17 12/13/19 06/17/18 History levETIRAcetam [Keppra] 500 mg PO BID #90 tablet 06/17/18 12/13/19 12/12/19 Rx Benztropine Mesylate 1 mg PO QHS 12/13/19 12/13/19 Unknown History Valbenazine Tosylate (Nf) 80 mg PO DAILY 12/13/19 12/13/19 Unknown History [Ingrezza (Nf)] hydrOXYzine PAMOATE [Vistaril] 50 mg PO TID 12/13/19 12/13/19 Unknown History levETIRAcetam [Keppra TAB] 500 mg PO BID #60 tablet 01/24/20 Unknown Rx hydrOXYzine HCL [Atarax] 25 mg PO BID #20 tablet 02/01/21 Unknown Rx ED Physical Exam - General Limitations: Other - Other Other exam information: General: Awake and alert. No acute distress. Sleeping comfortably upon entering exam room. Head: Atraumatic, normocephalic. Eyes: EOMI. Pupils are equal and round. Normal sclera and conjunctiva. ENT: Oral mucosa is moist. Normal pharyngeal exam. Neck: Supple. No lymphadenopathy. Pulmonary: No respiratory distress. Clear to auscultation bilaterally. Cardiac: Regular rate and rhythm. Pulses are palpable and equal bilaterally. No lower extremity cyanosis or edema. Skin: Warm and dry. No rashes. Abdomen: Soft, non-tender, non-protuberant. No guarding, rigidity, or rebound. Bowel sounds are normal. No organomegaly or masses noted. Back: Normal alignment. No CVA tenderness. Extremities: Symmetrical. Full range of motion intact. Neurological: Alert and oriented, appropriately interactive, no focal deficits. No tremor. No abnormal movements. Psych: Cooperative. Appropriate mood and affect. Speech is evenly metered. Thoughts are logically construed. ED Course Vital Signs 02/01/21 10:52 Temperature 98.2 F Pulse Rate 75 Respiratory 20 Rate Blood Pressure 105/62 O2 Sat by Pulse 99 Oximetry ED Medical Decision Making - Lab Data Result diagrams: 02/01/21 11:09 02/01/21 11:09 - Medical Decision Making Differential diagnosis including but not limited to: hypoglycemia, electrolyte abnormality, anemia, toxic ingestion, substance withdrawal, adverse medication effect Patient presents to the emergency department with reported complaints of tremors for 3 days following an adjustment to her medication regimen. Labs ordered during medical screening examination within normal limits. Patient is sleeping comfortably upon entering the examination room. No tremor was observed throughout the duration of history and physical examination. Patient's reported symptoms, which are currently resolved, are likely attributable to either her recent medication adjustment and/or recent increase in caffeine intake. Patient has been advised to refrain from further caffeine consumption. It is unclear why the patient's Hydroxyzine was discontinued however there is no apparent imminent harm in resuming the medication until the patient's physician can reevaluate the patient. She will be restarted on a low-dose of the medication and instructed to call her physician this week to expedite outpatient follow-up. Patient and family expressed understanding and are agreeable to plan of care. Strict return precautions provided. History, exam, diagnostic testing, and current condition do not suggest worrisome pathology to warrant further testing, continued ED treatment, admission, or surgical evaluation at this point. Given the low probability of a significant medical illness, it would be more likely to result in harm than bene fit to perform further testing at this stage. Discussed findings, presumptive diagnosis, need for follow-up and specific signs/symptoms that should prompt immediate return to the emergency department. Instructions were explained in detail to the patient in addition to giving written discharge information. Patient expressed understanding and was given the opportunity to ask questions, all of which were satisfactorily answered prior to discharge home. Critical care attestation.: If time is entered above; I have spent that time in minutes in the direct care of this critically ill patient, excluding procedure time. ED Disposition Clinical Impression: History of tremor Disposition: - TO HOME OR SELFCARE Is pt being admited?: No Does the pt Need Aspirin: No Condition: Stable Instructions: Tremor Additional Instructions: Resume Hydroxyzine twice daily. Continue all other medications as previously prescribed. Eliminate caffeine from your diet. Follow-up with your physician this week. Call tomorrow to schedule an appointment. Return to the emergency department immediately for new or worsening symptoms. Specifically, return to the emergency department immediately for fever, difficulty breathing, seizure, loss of consciousness, vomiting, or any other concerns. Prescriptions: hydrOXYzine HCL [Atarax] 25 mg PO BID #20 tablet Referrals: [facility] [Provider Group] - 3-5 Days Forms: Accompanied Note Time of Disposition: 12:33
== END 2021-02-01 12:51 | disposition home or self-care (01) ==
LOC: ED 09:32
DX: F25.1 Schizoaffective disorder, depressive type (principal); K21.9 Gastro-esophageal reflux disease without esophagitis; F17.200 Nicotine dependence, unspecified, uncomplicated; Z86.69 Personal history of other diseases of the nervous system and sense organs; Z79.899 Other long term (current) drug therapy; Z88.8 Allergy status to other drugs, medicaments and biological substances; Z88.6 Allergy status to analgesic agent; Z98.890 Other specified postprocedural states
CPT/HCPCS: 36415; 80053; 81001; 82550; 83735; 85025

== ENCOUNTER 2021-07-29 13:26 | Emergency (ER) | payer MEDICARE ==
[2021-07-29] MEDS ORDERED: levETIRAcetam 1000 MG/NS 0.75% 1,000 MG/100 ML BAG IV ONE (13:48)
[2021-07-29] MEDS ORDERED: diphenhydrAMINE 50 MG/ML VIAL IV ONE (13:48)
[2021-07-29 14:11] LABS: Eosinophils # (Auto) 0.1 K/mm3 (0.0-0.4); Eosinophils % (Auto) 1.7 % (0.0-4.3); Hematocrit 33.6 % (30.3-42.9); Hemoglobin 10.9 gm/dl (10.1-14.3); Lymphocytes # (Auto) 0.8 K/mm3 (1.2-5.4); Lymphocytes % (Auto) 20.7 % (13.4-35.0); Mean Corpuscular HGB Conc 33 % (30-34); Mean Corpuscular Volume 98 fl (79-97); Monocytes # (Auto) 0.6 K/mm3 (0.0-0.8); Monocytes % (Auto) 14.2 % (0.0-7.3); Platelet Count 162 K/mm3 (140-440); Red Blood Count 3.42 M/mm3 (3.65-5.03); Red Cell Distribution Width 13.4 % (13.2-15.2)
[2021-07-29 15:05] VITALS: BP 116/77
[2021-07-29 15:14] LABS: Calcium 8.9 mg/dL (8.4-10.2)
--- NOTE | 2021-07-29 15:50 | Emergency Department Report ---
ED General Adult HPI - General Chief complaint: Neuro Symptoms/Deficit Stated complaint: SHAKING/TREMBLING Time Seen by Provider: 07/29/21 13:48 Source: patient Mode of arrival: Ambulatory Limitations: No Limitations - History of Present Illness Initial comments: Patient is a 45-year-old F [place]vian female with past medical history of schizophrenia who is on multiple medications treating her condition. Patient is presenting with a feeling like she can she cannot stop shaking. She has been conscious and had no seizures. She does have a history of seizure takes Keppra. Patient and her family are worried that she may have a seizure. Denies any fe vers nausea vomiting diarrhea cough cold or congestion at this time. Severity scale (0 -10): 0 - Related Data Home Medications Medication Instructions Recorded Confirmed Last Taken Paliperidone [Invega] 3 mg PO DAILY 03/08/17 12/13/19 06/17/18 Benztropine Mesylate 1 mg PO QHS 12/13/19 12/13/19 Unknown Valbenazine Tosylate (Nf) 80 mg PO DAILY 12/13/19 12/13/19 Unknown [Ingrezza (Nf)] hydrOXYzine PAMOATE [Vistaril] 50 mg PO TID 12/13/19 12/13/19 Unknown Previous Rx's Medication Instructions Recorded Last Taken Type levETIRAcetam [Keppra] 500 mg PO BID #90 tablet 06/17/18 12/12/19 Rx levETIRAcetam [Keppra TAB] 500 mg PO BID #60 tablet 01/24/20 Unknown Rx hydrOXYzine HCL [Atarax] 25 mg PO BID #20 tablet 02/01/21 Unknown Rx Allergies Allergy/AdvReac Type Severity Reaction Status Date / Time acetaminophen [From Vicodin] Allergy Anaphylaxis Verified 07/29/21 13:33 codeine Allergy Anaphylaxis Verified 07/29/21 13:33 hydrocodone bitartrate Allergy Anaphylaxis Verified 07/29/21 13:33 [From Vicodin] ED Review of Systems ROS: Stated complaint: SHAKING/TREMBLING Other details as noted in HPI Comment: All other systems reviewed and negative ED Past Medical Hx - Past Medical History Hx Hypertension: No Hx Congestive Heart Failure: No Hx Diabetes: No Hx Deep Vein Thrombosis: No Hx GERD: Yes Hx Liver Disease: No Hx Renal Disease: No Hx Sickle Cell Disease: No Hx Seizures: Yes (report of seizure-like activity since admission. Keppra given.) Hx Psychiatric Treatment: Yes (BIPOLAR / DEPRESSION, PTSD) Hx Asthma: No Hx COPD: No Hx HIV: No Additional medical history: Congenital heart murmur, Downs Syndrome - Surgical History Additional Surgical History: Hernia repair x 2 - Social History Smoking Status: Current Every Day Smoker Substance Use Type: Prescribed - Medications Home Medications: Home Medications Medication Instructions Recorded Confirmed Last Taken Type Paliperidone [Invega] 3 mg PO DAILY 03/08/17 12/13/19 06/17/18 History levETIRAcetam [Keppra] 500 mg PO BID #90 tablet 06/17/18 12/13/19 12/12/19 Rx Benztropine Mesylate 1 mg PO QHS 12/13/19 12/13/19 Unknown History Valbenazine Tosylate (Nf) 80 mg PO DAILY 12/13/19 12/13/19 Unknown History [Ingrezza (Nf)] hydrOXYzine PAMOATE [Vistaril] 50 mg PO TID 12/13/19 12/13/19 Unknown History levETIRAcetam [Keppra TAB] 500 mg PO BID #60 tablet 01/24/20 Unknown Rx hydrOXYzine HCL [Atarax] 25 mg PO BID #20 tablet 02/01/21 Unknown Rx ED Physical Exam - General Limitations: No Limitations General appearance: alert, in no apparent distress - Head Head exam: Present: atraumatic, normocephalic - Eye Eye exam: Present: normal appearance, PERRL, EOMI - ENT ENT exam: Present: mucous membranes moist - Neck Neck exam: Present: normal inspection - Respiratory Respiratory exam: Present: normal lung sounds bilaterally. Absent: respiratory distress, wheezes, rales, rhonchi - Cardiovascular Cardiovascular Exam: Present: regular rate, normal rhythm, normal heart sounds. Absent: systolic murmur, diastolic murmur, rubs, gallop - GI/Abdominal GI/Abdominal exam: Present: soft, normal bowel sounds. Absent: distended, tenderness, guarding, rebound - Extremities Exam Extremities exam: Present: normal inspection - Back Exam Back exam: Present: normal inspection - Neurological Exam Neurological exam: Present: alert, oriented X3, other (Patient appears to be rocking her feet and arms back and forth as well as rolling her mouth) - Psychiatric Psychiatric exam: Present: normal affect, normal mood - Skin Skin exam: Present: warm, dry, intact, normal color. Absent: rash ED Course Vital Signs 07/29/21 07/29/21 13:29 15:05 Temperature 98.4 F 98.1 F Pulse Rate 63 73 Respiratory 16 22 Rate Blood Pressure 108/45 116/77 [Left] O2 Sat by Pulse 98 100 Oximetry ED Medical Decision Making - Lab Data Result diagrams: 07/29/21 13:54 07/29/21 13:54 - Medical Decision Making Likely that the patient has some degree of EPS. Patient given 50 of Benadryl and and all of her symptoms have calmed down. She was loaded with some Keppra empirically as well. Patient stable for discharge. Critical care attestation.: If time is entered above; I have spent that time in minutes in the direct care of this critically ill patient, excluding procedure time. ED Disposition Clinical Impression: Extrapyramidal and movement disorder, unspecified Disposition: 01 HOME / SELF CARE / HOMELESS Is pt being admited?: No Does the pt Need Aspirin: No Condition: Stable Instructions: Dystonia Referrals: PRIMARY CARE, [Primary Care Provider] - 3-5 Days Time of Disposition: 15:50
== END 2021-07-29 16:05 | disposition home or self-care (01) ==
LOC: ED 13:26
DX: G25.9 Extrapyramidal and movement disorder, unspecified (principal); F17.200 Nicotine dependence, unspecified, uncomplicated; Z88.6 Allergy status to analgesic agent; Z88.5 Allergy status to narcotic agent; Z88.8 Allergy status to other drugs, medicaments and biological substances; Z79.899 Other long term (current) drug therapy
CPT/HCPCS: 36415; 80048; 85025; 96374; 96375; 99283; J1200; J1953; 80320; G0480

== ENCOUNTER 2021-09-13 12:38 | Emergency (ER) | payer MEDICARE ==
[2021-09-13] MEDS ORDERED: BENZTROPINE 2 MG/2 ML INJ IM ONE (14:45)
[2021-09-13] MEDS ORDERED: diphenhydrAMINE 50 MG/ML VIAL IM ONE (14:45)
--- NOTE | 2021-09-13 14:45 | Emergency Department Report ---
ED General Adult HPI - General Chief complaint: Medical Clearance Stated complaint: TRIMBLING,SOB,WHEEZING PUI?: No Time Seen by Provider: 09/13/21 13:47 Source: patient, family Mode of arrival: Wheelchair Limitations: Physical Limitation - History of Present Illness Initial comments: Chief complaint: She keeps shaking HPI: This is a 45-year-old female with history of mental health disorde, seizure disorder, hypertension, tardive dyskinesia who presents with repetitive mouth movements and trembling. Psychotropic medications were changed due to significant EPS symptoms. is unclear why her trembling persists. She is followed by neurologist Dr. Murillo and primary care physician Dr. Vance [facility]. According to electronic record patient has presented 3 times over the last year for tremors. -: year(s) (Tremors and repetitive movement present over the last year) Severity scale (0 -10): 3 Consistency: constant Improves with: none Worsens with: none Associated Symptoms: denies other symptoms - Related Data Home Medications Medication Instructions Recorded Confirmed Last Taken Paliperidone [Invega] 3 mg PO DAILY 03/08/17 12/13/19 06/17/18 Benztropine Mesylate 1 mg PO QHS 12/13/19 12/13/19 Unknown Valbenazine Tosylate (Nf) 80 mg PO DAILY 12/13/19 12/13/19 Unknown [Ingrezza (Nf)] hydrOXYzine PAMOATE [Vistaril] 50 mg PO TID 12/13/19 12/13/19 Unknown Previous Rx's Medication Instructions Recorded Last Taken Type levETIRAcetam [Keppra] 500 mg PO BID #90 tablet 06/17/18 12/12/19 Rx levETIRAcetam [Keppra TAB] 500 mg PO BID #60 tablet 01/24/20 Unknown Rx hydrOXYzine HCL [Atarax] 25 mg PO BID #20 tablet 02/01/21 Unknown Rx Allergies Allergy/AdvReac Type Severity Reaction Status Date / Time acetaminophen [From Vicodin] Allergy Anaphylaxis Verified 07/29/21 13:33 codeine Allergy Anaphylaxis Verified 07/29/21 13:33 hydrocodone bitartrate Allergy Anaphylaxis Verified 07/29/21 13:33 [From Vicodin] ED Review of Systems ROS: Stated complaint: TRIMBLING,SOB,WHEEZING Other details as noted in HPI Comment: All other systems reviewed and negative Constitutional: denies: chills, fever, malaise Respiratory: denies: cough, shortness of breath Cardiovascular: denies: chest pain ED Past Medical Hx - Past Medical History Hx Hypertension: Yes Hx Congestive Heart Failure: No Hx Diabetes: No Hx Deep Vein Thrombosis: No Hx GERD: Yes Hx Liver Disease: No Hx Renal Disease: No Hx Sickle Cell Disease: No Hx Seizures: Yes (report of seizure-like activity since admission. Keppra given.) Hx Psychiatric Treatment: Yes (BIPOLAR / DEPRESSION, PTSD) Hx Asthma: No Hx COPD: No Hx HIV: No Additional medical history: Congenital heart murmur, Downs Syndrome - Surgical History Past Surgical History?: Yes Additional Surgical History: Hernia repair x 2 - Social History Smoking Status: Current Every Day Smoker Substance Use Type: Prescribed - Medications Home Medications: Home Medications Medication Instructions Recorded Confirmed Last Taken Type Paliperidone [Invega] 3 mg PO DAILY 03/08/17 12/13/19 06/17/18 History levETIRAcetam [Keppra] 500 mg PO BID #90 tablet 06/17/18 12/13/19 12/12/19 Rx Benztropine Mesylate 1 mg PO QHS 12/13/19 12/13/19 Unknown History Valbenazine Tosylate (Nf) 80 mg PO DAILY 12/13/19 12/13/19 Unknown History [Ingrezza (Nf)] hydrOXYzine PAMOATE [Vistaril] 50 mg PO TID 12/13/19 12/13/19 Unknown History levETIRAcetam [Keppra TAB] 500 mg PO BID #60 tablet 01/24/20 Unknown Rx hydrOXYzine HCL [Atarax] 25 mg PO BID #20 tablet 02/01/21 Unknown Rx ED Physical Exam - General Limitations: Physical Limitation General appearance: alert, in no apparent distress, other (Repetitive mouth movement, repetitive hand movement) - Head Head exam: Present: atraumatic, normocephalic - Eye Eye exam: Present: normal appearance - ENT ENT exam: Present: mucous membranes moist - Neck Neck exam: Present: normal inspection - Respiratory Respiratory exam: Present: normal lung sounds bilaterally. Absent: respiratory distress - Cardiovascular Cardiovascular Exam: Present: regular rate, normal rhythm. Absent: systolic murmur, diastolic murmur, rubs, gallop - GI/Abdominal GI/Abdominal exam: Present: soft, normal bowel sounds. Absent: distended, tenderness, guarding, rebound - Extremities Exam Extremities exam: Present: normal inspection - Back Exam Back exam: Present: normal inspection - Neurological Exam Neurological exam: Present: alert, oriented X3 - Psychiatric Psychiatric exam: Present: normal affect, normal mood - Skin Skin exam: Present: warm, dry, intact, normal color. Absent: rash ED Course Vital Signs 09/13/21 13:44 Temperature 98.3 F Pulse Rate 119 H Respiratory 20 Rate Blood Pressure 166/99 [Right] O2 Sat by Pulse 99 Oximetry ED Medical Decision Making - Medical Decision Making Extrapyramidal reaction, tardive dyskinesia, tremor treated with IM d iphenhydramine and IM Cogentin. Discharged home. Critical care attestation.: If time is entered above; I have spent that time in minutes in the direct care of this critically ill patient, excluding procedure time. ED Disposition Clinical Impression: Extrapyramidal reaction, Tardive dyskinesia Disposition: HOME / SELF CARE / HOMELESS Is pt being admited?: No Does the pt Need Aspirin: No Condition: Stable Instructions: Tardive Dyskinesia Referrals: JORDIN MURILLO MD [Referring] - [email or web address]
[2021-09-13 15:59] VITALS: BP 187/90
== END 2021-09-13 15:58 | disposition home or self-care (01) ==
LOC: ED 12:38
DX: G24.01 Drug induced subacute dyskinesia (principal); G25.89 Other specified extrapyramidal and movement disorders; I10 Essential (primary) hypertension; K21.9 Gastro-esophageal reflux disease without esophagitis; R56.9 Unspecified convulsions; F17.200 Nicotine dependence, unspecified, uncomplicated; Z88.8 Allergy status to other drugs, medicaments and biological substances; Z91.09 Other allergy status, other than to drugs and biological substances; Z79.899 Other long term (current) drug therapy; Z98.890 Other specified postprocedural states
CPT/HCPCS: 96372; 99282; J0515; J1200

== ENCOUNTER 2021-10-26 11:09 | Outpatient (CLI) | payer MEDICARE ==
[2021-10-26 12:02] LABS: Hematocrit 34.6 % (30.3-42.9); Hemoglobin 11.6 gm/dl (10.1-14.3); Mean Corpuscular HGB Conc 34 % (30-34); Mean Corpuscular Volume 98 fl (79-97); Platelet Count 162 K/mm3 (140-440); Red Blood Count 3.54 M/mm3 (3.65-5.03); Red Cell Distribution Width 12.9 % (13.2-15.2)
[2021-10-26 12:24] LABS: Alanine Aminotransferase 12 units/L (7-56); Albumin 4.4 g/dL (3.9-5); BUN/Creatinine Ratio 13; Blood Urea Nitrogen 13 mg/dL (7-17); Calcium 9.3 mg/dL (8.4-10.2); Hemolysis Index 2
== END 2021-10-26 11:10 | disposition home or self-care (01) ==
LOC: LAB 11:09
PROVIDERS: ATTEND Specialist
DX: E21.3 Hyperparathyroidism, unspecified (principal); G40.301 Generalized idiopathic epilepsy and epileptic syndromes, not intractable, with status epilepticus; I10 Essential (primary) hypertension
CPT/HCPCS: 36415; 80053; 83970; 84443; 85027; 86592